=== PATIENT | male | born 1980 | race Two or more races ===

== ENCOUNTER 2018-02-09 12:11 | Inpatient (IN) | payer OTHER ==
--- NOTE | 2018-02-09 12:43 | ED ---
Shortness of Breath - HPI Summary HPI Summary: Patient presents with progressively worsening shortness of breath since Monday. Associated symptoms on Monday included sore throat and cough along with diarrhea. His sore throat seems to be better but still bothers him when he has excessive cough. He also admits to blood-tinged sputum the past couple of days. He's also had nasal congestion but denies headache, neck stiffness, ear pain, chest pain. He's had some abdominal discomfort since the diarrhea however no acute pain today. He also admits to some right lower lung back pain a couple days ago. Does not have this pain today. He also denies pain between his shoulder blades, chest pain or tearing sensation. [place] like his heart was pounding earlier today when he had shortness of breath however this has resolved since he's been able to lie in the bed with oxygen in place. Feels her shortness of breath is improved since oxygen. He also tried his brother's albuterol inhaler prior to arrival things dismay of helped a little. He has not had influenza vaccine and no strong history of strep throat. Also denies history of asthma, COPD, pneumonia, pulmonary embolism, cardiac issues other than hypertension which he treats with lisinopril, atenolol and hydrochlorothiazide. When asked about lower extremity swelling, he reports it may have gotten better since he's been resting the past couple days in bed. H.o smoking - quit years ago - would have an occasional smoke but hasn't in 6 months. Rarey drinks ETOH and denies recent/remote h/o illicit drug use. - History of Current Complaint Chief Complaint: EDShortnessOfBreath Time Seen by Provider: 02/09/18 12:14 Hx Obtained From: Patient, Family/Facilities Engineering Manager - mom, brother - Allergy/Home Medications Allergies/Adverse Reactions: Allergies Allergy/AdvReac Type Severity Reaction Status Date / Time No Known Allergies Allergy Verified 06/17/14 11:40 Home Medications: Home Medications Atenolol TAB* [Tenormin TAB* 50 MG] 100 mg PO DAILY 02/09/18 [History Confirmed 02/09/18] Cyclobenzaprine TAB* [Flexeril 10 MG TAB*] 5 - 10 mg PO TID PRN 02/09/18 [ History Confirmed 02/09/18] Fluoxetine (Nf) Cap [Fluoxetine HCl] 40 mg PO DAILY 02/09/18 [History Confirmed 02/09/18] Ibuprofen TAB* [Motrin TAB* 600 MG] 600 mg PO Q8H PRN 02/09/18 [History Confirmed 02/09/18] Lisinopril/HCTZ (NF) [Zestoretic (NF)] 1 tab PO DAILY 02/09/18 [ History Confirmed 02/09/18] oxyCODONE TAB* [Roxycodone TAB 5 mg*] 5 mg PO Q6H PRN 02/09/18 [History Confirmed 02/09/18] PMH/Surg Hx/FS Hx/Imm Hx Previously Healthy: Yes Endocrine/Hematology History: Denies: Hx Anticoagulant Therapy, Hx Blood Disorders, Hx Diabetes, Hx Unexplained Bleeding, Hx Coagulopothy Cardiovascular History: Reports: Hx Hypertension - ON 3 MEDS Denies: Hx Aneurysm, Hx Cardiac Arrest, Hx Congestive Heart Failure, Hx Deep Vein Thrombosis, Hx Hypercholesterolemia, Hx Myocardial Infarction, Hx Pacemaker /ICD, Hx Syncope, Hx Valvular Heart Disease Respiratory History: Reports: Hx Sleep Apnea Denies: Hx Asthma, Hx Chronic Obstructive Pulmonary Disease (COPD) History: Denies: Hx Kidney Infection, Hx Kidney Stones, Hx Renal Disease Musculoskeletal History: Reports: Hx Back Problems - chronic - on narcotic pain med Sensory History: Denies: Hx Hearing Aid Psychiatric History: Reports: Hx Depression Denies: Hx Panic Disorder - Surgical History Surgery Procedure, Year, and Place: lumbar surgery 2004; RT ANKLE (SCREW IN PLACE); TONSILECTOMY Infectious Disease History: No Infectious Disease History: Denies: Traveled Outside the [place] in Last 30 Days - Family History Known Family History: Positive: Diabetes, Other - asthma - brother - Social History Occupation: Unemployed - applying for disability Lives: With Family - mom, brother Alcohol Use: Rare Hx Substance Use: No - pt denies Substance Use Type: Reports: None Substance Use Comment - Amount & Last Used: takes oxycodone for chronic LBP - no reported issues Hx Tobacco Use: Yes - last smoked 6 months ago Smoking Status (MU): Former Smoker Type: Cigarettes Amount Used/How Often: 1/2 pdd Have You Smoked in the Last Year: Yes Review of Systems Constitutional: Negative Eyes: Negative Positive: Sore Throat Cardiovascular: Other - rapid HR Negative: Chest Pain Positive: Shortness Of Breath, Cough Positive: Diarrhea Positive: no symptoms reported Musculoskeletal: Other - Rt back pain Skin: Negative Psychological: Normal All Other Systems Reviewed And Are Negative: Yes Physical Exam Triage Information Reviewed: Yes Vital Signs On Initial Exam: Initial Vitals Temp Pulse Resp BP Pulse Ox 97.2 F 90 24 124/70 92 02/09/18 12:14 02/09/18 12:14 02/09/18 12:14 02/09/18 12:14 02/09/18 12:14 Vital Signs Reviewed: Yes Appearance: Positive: No Pain Distress - appears mildly faitgued - sweaty forehead and clammy skin, Obese - morbid obesity Skin: Positive: Warm, Skin Color Reflects Adequate Perfusion Head/Face: Positive: Normal Head/Face Inspection Eyes: Positive: Normal, EOMI, MARK, Conjunctiva Clear. Negative: Conjunctiva Inflammed, Discharge ENT: Positive: Hearing grossly normal, Pharynx normal, Nasal congestion - mild, TMs normal, Uvula midline. Negative: Nasal drainage, Tonsillar swelling, Tonsillar exudate, Trismus, Muffled voice, Sinus tenderness Neck: Positive: Supple, Nontender - difficult to assess LN's d/t body habitus Respiratory/Lung Sounds: Positive: Breath Sounds Present - distant. Negative: Rales, Rhonchi, Stridor, Tracheal Deviation, Wheezes, Unable to speak in full sentences, Fatigue Cardiovascular: Positive: Leg Edema Left, Leg Edema Right - edema vs. body habitus - NTTP, S1, S2 - distant heart sounds d/t body habitus Abdomen Description: Positive: Nontender, Soft Musculoskeletal: Positive: Normal, Strength/ROM Intact Neurological: Positive: Normal, Sensory/Motor Intact, Alert, Oriented to Person Place, Time, CN Intact II-III Psychiatric: Positive: Normal Diagnostics - Vital Signs Vital Signs Temp Pulse Resp BP Pulse Ox 02/09/18 12:14 97.2 F 90 24 124/70 92 - Laboratory Result Diagrams: 02/12/18 06:00 02/12/18 06:00 Lab Statement: Any lab studies that have been ordered have been reviewed, and results considered in the medical decision making process. Re-Evaluation - Re-Evaluation First Eval Change: Improved - SOB improved w rest and O2 via NC Course/Dx - Course Course Of Treatment: ECG shows inverted T waves in V1, V2, V3 - discussed w/ Dr. Owens - will await cardiac therapy until additional tests return as he is clinically suspicious for PNA or PE. Added serial troponins. lactic acid 2.2 and renal labs are worse than normal - 2L IVF ordered - will await anbx pending imaging as he does not meet SIRS criteria at this time. CTA reveals B/L PE's, Lt > Rt. D/t extent of PE's and morbid obesity w/ sx here today (although vitals stable), called Dr. Davila to consult ICU admission vs. floor - he agrees to at least 24 obs in ICU and will initiate heparin. There is also a possible infiltrate on CT - IV anbx ordered. Pt transitioned in stable condition. Critical care time: 45mins - Diagnoses Provider Diagnoses: Bilateral pulmonary embolism, Pulmonary infiltrate Discharge - Sign-Out/Discharge Documenting (check all that apply): Patient Departure - Discharge Plan Condition: Stable Disposition: ADMITTED TO [facility] - Billing Disposition and Condition Condition: STABLE Disposition: Admitted to [facility]
[2018-02-09 12:57] LABS: ABS Basophils 0.2 10^3/ul (0-0.2); ABS Eosinophils 0.2 10^3/ul (0-0.6); ABS Lymphocytes 3.7 10^3/ul (1.0-4.8); ABS Monocytes 0.8 10^3/ul (0-0.8); ABS Neutrophils 8.3 10^3/ul (1.5-7.7); ABS Nucleated RBC 0 10^3/ul; Eosinophil % 1.3 % (0-6); Hematocrit 43 % (42-52); Hemoglobin 14.1 g/dl (14.0-18.0); Lymphocyte % 28.3 % (25-47); Mean Corpuscular HGB Conc 33 g/dl (31-36); Mean Corpuscular Hemoglobin 29 pg (27-31); Mean Corpuscular Volume 87 fL (80-94); Mean Platelet Volume 9.7 fL (7.4-10.4); Nucleated Red Blood Cells % 0.1; Platelet Count 296 10^3/ul (150-450); Red Blood Count 4.89 10^6/ul (4.00-5.40); Red Cell Distribution Width 15 % (10.5-15); White Blood Count 13.1 10^3/ul (3.5-10.8)
[2018-02-09 13:07] LABS: INR 1.07 (0.77-1.02)
[2018-02-09 13:16] LABS: EGFR Non-African American 47.3 (>60)
[2018-02-09] MEDS ORDERED: Iodixanol* (CONTRAST) 320 MG/ML 100 ML SDV IV ONE (13:20)
[2018-02-09] MEDS ORDERED: NS 0.9% 1000 ML* 2,000 ML IV SCH (13:30)
[2018-02-09] MEDS ORDERED: NS 0.9% 1000 ML* 2,000 ML IV ONE (14:00)
[2018-02-09] MEDS ORDERED: Azithromycin IV(*) 500 MG in NS 0.9% 250 ML* 250 ML IVPB ONE (15:05)
[2018-02-09] MEDS ORDERED: cefTRIAXone(*) 1 GM in NS 0.9% 50 ML* 50 ML IVPB ONE (15:05)
[2018-02-09] MEDS: Heparin VIAL(*) 5000 UNITS/ML VIAL (FIVE THOUSAND) IV SCH ×2 (16:24→23:25)
[2018-02-09] MEDS: Heparin DRIP 25,000 UNITS(*) 25,000 UNITS/500 ML BAG IV SCH (16:26)
[2018-02-09] MEDS ORDERED: Albuterol 2.5 MG/3 ML NEB.SOL* (0.083%) INH PRN (16:31)
--- NOTE | 2018-02-09 16:31 | HP ---
H&P (Free Text) History and Physical: History and Physical -- Critical Care Limitations in history/physical: none HPI: 37y M w/pmhx of obesity, HTN, Depression, Chronic back pain, sleep apnea; comes to ER for complaints of SOB since Monday. States last (8days back ) developed some cough, sore throat. No rhinorrhea/headache/fever/chills/sick contacts. Also had diarrhea for a few days, watery, some intermittent abd pain, no nausea/vom. The URI and diarrhea has improved past few days, some intermittent soreness in throat at times. Some sputum production at times and small streaks of blood in them only. No Chest pain. SOB started Monday, on exertion, improved with rest. Associated with dizziness but no syncope on exertion. No Lower ext swelling now, but intermittent in past. In ER, had CT chest which demonstrated large pulmonary emboli in left main extending into lingular and left lower lobe, as well as right middle lobe segmental arteria of right lower lobe. Mild scattered infiltrate+ EKG NSR with anterior twave inversions He is awake, alert, sats 92-94 on RA, not tachy, BP 120s in ER on arrival, similar vitals now. Started on NC 2-3L, rr teens, no active Resp distress at rest. Last BP 110s. Discussed with ER about starting IV heparin. ROS: negative except for pertinent positives mentioned above. PMHx: obesity, HTN, Depression, Chronic back pain, sleep apnea PSHx: lumbar surgery 2004, Right ankle screw, tonsillectomy Family History: DM, Asthma in brother Social History: Alcohol-social weekly, Smoking-past smoker, last cig months back , Drug use-none Allergies: Allergies Allergy/AdvReac Type Severity Reaction Status Date / Time No Known Allergies Allergy Verified 06/17/14 11:40 Home Medications: Atenolol TAB* [Tenormin TAB* 50 MG] 100 mg PO DAILY 02/09/18 [History Confirmed 02/09/18] Cyclobenzaprine TAB* [Flexeril 10 MG TAB*] 5 - 10 mg PO TID PRN 02/09/18 [ History Confirmed 02/09/18] Fluoxetine (Nf) Cap [Fluoxetine HCl] 40 mg PO DAILY 02/09/18 [History Confirmed 02/09/18] Ibuprofen TAB* [Motrin TAB* 600 MG] 600 mg PO Q8H PRN 02/09/18 [History Confirmed 02/09/18] Lisinopril/HCTZ (NF) [Zestoretic (NF)] 1 tab PO DAILY 02/09/18 [ History Confirmed 02/09/18] oxyCODONE TAB* [Roxycodone TAB 5 mg*] 5 mg PO Q6H PRN 02/09/18 [History Confirmed 02/09/18] Tele: NSR Vitals: Vital Signs Temp 98.1 F 02/09/18 16:14 Pulse 76 02/09/18 16:14 Resp 23 02/09/18 16:14 BP 97/66 02/09/18 16:14 Pulse Ox 97 02/09/18 16:14 Intake & Output 02/08/18 02/09/18 02/09/18 18:59 06:59 18:59 Intake Total 1999 Balance 1999 Weight 235.868 kg Intake: IV Fluids 1999 O2/Vent: NC 3 L; sat 96% Infusions: heplock Current Medications: Cyclobenzaprine HCl (Flexeril Tab*) 5 mg PO TID PRN PRN Reason: SPASMS - MUSCLE Fluoxetine HCl (Prozac Cap*) 40 mg PO DAILY [facility] Heparin Sodium (Porcine) (Heparin Vial(*)) 0 units IV .PER PROTOCOL [facility] Heparin Sodium/Dextrose (Heparin Drip 25,000 Units(*)) 25,000 units in 500 mls @ 0 mls/hr IV PER RATE JESSICA; Protocol Azithromycin 500 mg/ Sodium (Chloride) 250 mls @ 250 mls/hr IVPB Q24H JESSICA Oxycodone HCl (Roxycodone Tab*) 5 mg PO Q8H PRN PRN Reason: PAIN - SEVERE Physical Exam: General: awake, alert, no distress, no diaphoresis; obese Head: normocephalic, atraumatic HEENT: no pallor, no icterus, moist mucous membranes Neck: soft, supple, no jvd, no stridor CVS: normal rate, regular, no murmur Resp: bilateral air entry, no rhales, no wheeze, no rhonchi, no acc muscle use Abdomen: soft, nontender, nondistended, bowel sounds present Ext: pulses+, warm, no edema Skin: intact Neuro: awake, alert, orientedx3, moving all extremities, no gross focal deficit Labs: Laboratory Results - last 24 hr 02/09/18 02/09/18 02/09/18 12:38 12:38 12:38 WBC 13.1 H RBC 4.89 Hgb 14.1 Hct 43 MCV 87 MCH 29 MCHC 33 RDW 15 Plt Count 296 MPV 9.7 Neut % (Auto) 63.2 Lymph % (Auto) 28.3 [place] % (Auto) 5.9 Eos % (Auto) 1.3 Baso % (Auto) 1.3 Absolute Neuts (auto) 8.3 H Absolute Lymphs (auto) 3.7 Absolute Monos (auto) 0.8 Absolute Eos (auto) 0.2 Absolute Basos (auto) 0.2 Absolute Nucleated RBC 0 Nucleated RBC % 0.1 INR (Anticoag Therapy) APTT Sodium 135 Potassium 3.8 Chloride 105 Carbon Dioxide 21 L Anion Gap 9 BUN 53 H Creatinine 1.63 H Est GFR ( Amer) 57.3 Est GFR (Non-Af Amer) 47.3 BUN/Creatinine Ratio 32.5 H Glucose 127 H Lactic Acid 2.2 H* Calcium 9.1 Magnesium 2.1 Total Bilirubin 0.30 AST 38 ALT 65 H Alkaline Phosphatase 70 Troponin I 0.01 C-Reactive Protein 31.58 H B-Natriuretic Peptide Total Protein 7.0 Albumin 3.8 Globulin 3.2 Albumin/Globulin Ratio 1.2 TSH 3.73 Influenza A (Rapid) Influenza B (Rapid) Group A Strep Rapid 02/09/18 02/09/18 02/09/18 12:38 12:38 13:14 WBC RBC Hgb Hct MCV MCH MCHC RDW Plt Count MPV Neut % (Auto) Lymph % (Auto) [place] % (Auto) Eos % (Auto) Baso % (Auto) Absolute Neuts (auto) Absolute Lymphs (auto) Absolute Monos (auto) Absolute Eos (auto) Absolute Basos (auto) Absolute Nucleated RBC Nucleated RBC % INR (Anticoag Therapy) 1.07 H APTT 27.5 Sodium Potassium Chloride Carbon Dioxide Anion Gap BUN Creatinine Est GFR ( Amer) Est GFR (Non-Af Amer) BUN/Creatinine Ratio Glucose Lactic Acid Calcium Magnesium Total Bilirubin AST ALT Alkaline Phosphatase Troponin I C-Reactive Protein B-Natriuretic Peptide 796 H Total Protein Albumin Globulin Albumin/Globulin Ratio TSH Influenza A (Rapid) Influenza B (Rapid) Group A Strep Rapid Negative 02/09/18 13:15 WBC RBC Hgb Hct MCV MCH MCHC RDW Plt Count MPV Neut % (Auto) Lymph % (Auto) [place] % (Auto) Eos % (Auto) Baso % (Auto) Absolute Neuts (auto) Absolute Lymphs (auto) Absolute Monos (auto) Absolute Eos (auto) Absolute Basos (auto) Absolute Nucleated RBC Nucleated RBC % INR (Anticoag Therapy) APTT Sodium Potassium Chloride Carbon Dioxide Anion Gap BUN Creatinine Est GFR ( Amer) Est GFR (Non-Af Amer) BUN/Creatinine Ratio Glucose Lactic Acid Calcium Magnesium Total Bilirubin AST ALT Alkaline Phosphatase Troponin I C-Reactive Protein B-Natriuretic Peptide Total Protein Albumin Globulin Albumin/Globulin Ratio TSH Influenza A (Rapid) Negative Influenza B (Rapid) Negative Group A Strep Rapid Imaging: CTA chest 02/09 - large pulmonary emboli in left main extending into lingular and left lower lobe, as well as right middle lobe segmental arteria of right lower lobe. Mild scattered infiltrate+ (report reviewed) Assessment: 37y M w/pmhx of obesity, HTN, Depression, Chronic back pain, sleep apnea; comes to ER for complaints of SOB since Monday. States last ( 8days back) developed some cough, sore throat. Had intermittent diarrhea for days also. SOB on exertion for 6 days, mild improvement, no chest pain, no LE swelling. Found to have bilateral pulm emboli with scattered infiltrates. No hypotension or tachycardia on arrival, low 90s O2 sats. -Bilateral Submassive Pulmonary Embolism -Acute RV dysfunction, RV strain -Atypical/interstitial pneumonia -Sepsis -RODRÍGUEZ likely from pre-renal azotemia/volume depletion HTN Obesity Plan: Neuro- awake/alert. delirium prec. asp prec. CVS- BP stable, no hypotension. HR in 80s. on BB at home, noted. LA elevated wtih WBC, some infiltrates, but had diarrhea, likely some component of volume depletion. IVF 2L given. start 50cc/hr. PO intake liquid diet. hold BB/ antihypertensives for now. LE venous duplex. IV heparin bolus/infusion for PE tx. -prelim echo at bedside; evidence of RV dilatatation, septal flattening+ -BP 110, HR 80s, on 3 L, no tachypnea, sats 96%. bnp elevated, trop neg x1. ekg with anteroseptal twave inversions. -currently appears to be submassive, based on PESI score i would rate him a class 1, and OUMAR score is low risk with RV dysfunction only. Based on these scores, hemodyn of patient and resp status, IV heparin may be appropriate at this time. tPA may be consider if any further changes in hemodyn or resp status as rescue therapy with 1/2 dose unless full dose is required. Maintain IV heparin bolus/infusion tx. Resp- tachypnea on exertion. on NC 3 L. no active hypoxia requiring NIV or low sats evident. CT findings noted. TTE as above. IV heparin tx. Start IV abx for pneumonia, possible viral etiology earlier. Bronchodilators PRN. see above ID- wbc 13, afebrile. sent blood cultures. check urine leg/strept, myco for atypical organisms. start azitromycin (day#1) and ceftriaxone (day#1) for CAP coverage. Influenza neg. sputum culture if any. GI- diarrhea resolved as per patient. liquid diet full for now. h2b po. nutrition consult. Renal- RODRÍGUEZ, elevated BUN, nongap acidosis. Diarrhea+, poor po intake, +some degree of upper resp infection/sepsis. LIkely pre-renal origin, volume depletion. IVF 2L NS given. IVF NS 50cc/hr. follow urine output. check mg level. K okay. Heme- hg stable. plt okay. PE, start IV heparin therap dosing. follow protocol. if stable, bridge to warfarin or NOAC, depending on renal function later. check LE duplex. unclear ppt'ing factor, illness? pt states he is mobile though. may need hypercoag workup, will have heme see patient during admission at some point. Endo- send hba1c/tsh/lipid profol. fingerstick as needed Musculsk- pressure ulcer prophylaxis. Bedrest. Wounds- none Nutrition- liquid diet for now DVT prophylaxis: no SCDs till duplex done; IV heparin GI prophylaxis: h2b Central Line: no Arterial Line: no Matt Cathetor: no Disposition: admit to ICU; expected LOS>2 midnights Code Status: full code Total Critical Care time is 90 minutes, excluding procedures/teaching Oscar Davila MD Real Estate Director (Electronically Signed)
[2018-02-09] MEDS ORDERED: Perflutren Lipid Microsphere* 3 ML VIAL ONE (16:37)
[2018-02-09 17:47] LABS: Urine Appearance Clear; Urine Blood Negative (Negative); Urine Color Yellow; Urine Ketones Negative (Negative); Urine Protein Negative (Negative); Urine Urobilinogen Negative (Negative)
--- NOTE | 2018-02-09 18:16 | ECHO ---
Patient: YULY HERNADEZ [facility] Rec#: [id number] : 1980 Date: 02/09/2018 Age: 37y Height: 168 cm / 66.1 in Weight: 236 kg / 520.1 lbs Sex: M BSA: 3.01 Room#: ICU 1 Admit Date#: 02/09/2018 Type: Inpatient Referring: Oscar Davila Reading: Delio Sy MD Professor Of Criminal Justice: Mayte Can RN RDCS CC: Yen Stanford NP Transthoracic Echocardiogram Indication: Pulmonary embolism BP: 102/47 HR: 79 Rhythm: NSR Findings History: HTN, morbid obesity, sleep apnea, former smoker, leg edema Technical Comments: The study is technically limited due to poor acoustic windows. The study is technically limited due to patient body habitus. Left Ventricle: The left ventricular chamber size is decreased. Global left ventricular wall motion and contractility are within normal limits. There is normal left ventricular systolic function. The estimated ejection fraction is 60-65%. There is septal flattening of the interventricular septum consistent with right ventricular volume or pressure overload. The assessment of diastolic function is non-diagnostic. Left Atrium: The left atrium is not well visualized. The left atrial chamber size is normal. Right Ventricle: The right ventricle is not well visualized. The right ventricle is moderate to severely dilated. The right ventricular systolic function is moderate to severely reduced. Right Atrium: The right atrium is not well visualized. Aortic Valve: The aortic valve structure is not well visualized. There is no evidence of aortic regurgitation. There is no evidence of aortic stenosis. Mitral Valve: The mitral valve leaflets appear normal. There is no evidence of mitral regurgitation. Tricuspid Valve: The tricuspid valve structure is not well visualized. There is trace tricuspid regurgitation. There is evidence of moderate to severe pulmonary hypertension. Pulmonic Valve: The pulmonic valve structure is not well visualized. There is no evidence of pulmonic regurgitation. There is no pulmonic stenosis. Pericardium: There is no significant pericardial effusion. Aorta: The aorta is not well visualized. There is no dilatation of the aortic arch. Pulmonary Artery: The main pulmonary artery is not well visualized. Venous: The venous system is not well visualized. The inferior vena cava is not visualized. Contrast: Definity was used to optimize study. A total of 5 ml of diluted Definity was given IV. Conclusions There is normal left ventricular systolic function. The estimated ejection fraction is 60-65%. Global left ventricular wall motion and contractility are within normal limits. The left ventricular chamber size is decreased. The right ventricle is moderate to severely dilated. The right ventricular systolic function is moderate to severely reduced. There is septal flattening of the interventricular septum consistent with right ventricular volume or pressure overload. Functionally benign heart valves. There is evidence of moderate to severe pulmonary hypertension. There is no prior echocardiogram available to compare with at this time. Results discussed with the attending physician, Dr. Davila. Measurements Name Value Normal Range RVIDd (AP) 2D 5.5 cm (0.9 - 2.6) IVSd (2D) 1 cm (0.6 - 1) LVPWd (2D) 1 cm (0.6 - 1) LVIDd (2D) 3.5 cm (3.6 - 5.4) Aortic Annulus 2.1 cm (1.4 - 2.6) Aortic arch 2.6 cm (1.8 - 3.4) LA dimension (AP) 2D 3.1 cm (2.3 - 3.8) Name Value Normal Range MV E-wave Vmax 0.82 m/sec - MV deceleration time 236 msec - MV A-wave Vmax 0.66 m/sec - MV E:A ratio 1.2 ratio - LV septal e' Vmax 0.07 m/sec - LV lateral e' Vmax 0.08 m/sec - LV E:e' septal ratio 11.7 ratio - LV E:e' lateral ratio 10.3 ratio - Name Value Normal Range AV Vmax 0.97 m/sec - AV VTI 15.1 cm - AV peak gradient 4 mmHg - AV mean gradient 2 mmHg - LVOT Vmax 0.66 m/sec - LVOT VTI 12.5 cm - LVOT peak gradient 2 mmHg - LVOT mean gradient 1 mmHg - ASHKAN Vmax 1.2 m/sec - Name Value Normal Range TR Vmax 3.5 m/sec - TR peak gradient 49 mmHg - RAP 8 mmHg - RVSP 57 mmHg - Name Value Normal Range PV Vmax 0.8 m/sec -
[2018-02-09] MEDS ORDERED: Lidocaine 2% PF * 5 ML VIAL ONE (18:27)
--- NOTE | 2018-02-09 19:01 | PN ---
Progress Note - Progress Note Date of Service: 02/09/18 Note: Arterial Line Procedure Note Indication: invasive hemodynamic monitoring Diagnosis: pulmonary embolism Performed by: Oscar Davila MD Consent: Informed ; placed in bedside chart Risk/Benefits of procedure explained. [place] Protocol: Time-out was performed and the correct patient and site were verified - Prior labs/history was reviewed prior to procedure - Full sterile precautions with chlorhexidine/full drapes/gowns/gloves utilized - Left radial artery visualized with US - Vessel accessed with return of pulsatile blood. One attempt was made to access vessel. A cathetor was threaded over wire into vessel. Good arterial waveform was observed on monitor. - Arterial Catheter was sutured to site; dressing applied to site. EBL <5 cc No immediate complications noted, patient tolerated procedure well. Oscar Davila MD Conveyor Installer (Electronically Signed)
--- NOTE | 2018-02-09 19:03 | PN ---
Progress Note - Progress Note Date of Service: 02/09/18 Note: Critical Care Unclear blood pressures; different pressures on different arms consent for arterial line; left radial arterial line placed; BP 110s/60s, HR 80s sinus awake/alert, on 3-4L, Sats 96%, no resp distress/tachypnea if he moves, he does get sob on exertion making urine LA normalized, trop repeat 0.01 still TTE official read as moderate-severe RV dysfunction consistent with submassive PE diagnosis. remains hemodyn stable, stable oxygen requirements, symptoms stable, subjectively feels better, objectively looks similar without any lethargic/ distress. maintain IV heparin infusion, follow protocol tpa will be considered if any worsenign status or hemodyn change. Oscar Davila MD Film Touch Up Inspector (electronically signed)
[2018-02-09] MEDS: NS 0.9% 1000 ML* 1,000 ML IV SCH (22:40)
[2018-02-10] MEDS: Heparin DRIP 25,000 UNITS(*) 25,000 UNITS/500 ML BAG IV SCH ×2 (03:34→17:10)
[2018-02-10] MEDS: oxyCODONE TAB* 5 MG TAB PO PRN ×2 (05:40→16:12)
[2018-02-10 05:52] LABS: Hematocrit 41 % (42-52); Hemoglobin 13.7 g/dl (14.0-18.0); Mean Corpuscular HGB Conc 34 g/dl (31-36); Mean Corpuscular Hemoglobin 29 pg (27-31); Mean Corpuscular Volume 86 fL (80-94); Mean Platelet Volume 9.8 fL (7.4-10.4); Platelet Count 244 10^3/ul (150-450); Red Blood Count 4.75 10^6/ul (4.00-5.40); Red Cell Distribution Width 15 % (10.5-15); White Blood Count 9.9 10^3/ul (3.5-10.8)
[2018-02-10 06:13] LABS: EGFR Non-African American 70.8 (>60)
[2018-02-10] MEDS: Heparin VIAL(*) 5000 UNITS/ML VIAL (FIVE THOUSAND) IV SCH ×2 (06:17→18:37)
[2018-02-10] MEDS: Famotidine TAB* 20 MG PO SCH (08:58)
[2018-02-10] MEDS: FLUoxetine CAP* 20 MG PO SCH (08:58)
--- NOTE | 2018-02-10 12:04 | PN ---
Progress Note - Progress Note Date of Service: 02/10/18 - Progress note Note: Pt seen and examined at bedside. O/n events noted, labs, meds, vitals reviewed Pt denies chest pain, SOB, dizziness, urinary complaints, head aches, LE pain BP has remained stable with MAP in 90`s overnight. Didnot require tPA Active Medications Generic Name Dose Route Start Last Admin Trade Name Freq PRN Reason Stop Dose Admin Albuterol 2.5 mg 02/09/18 16:31 Ventolin 2.5 Mg/3 Ml Neb.Angelica* INH Q4H PRN SOB/WHEEZING Cyclobenzaprine HCl 5 mg 02/09/18 15:30 Flexeril Tab* PO TID PRN SPASMS - MUSCLE Famotidine 20 mg 02/10/18 09:00 02/10/18 08:58 Pepcid Tab* PO 20 mg DAILY JESSICA Administration Fluoxetine HCl 40 mg 02/10/18 09:00 02/10/18 08:58 Prozac Cap* PO 40 mg DAILY JESSICA Administration Heparin Sodium (Porcine) 0 units 02/09/18 16:00 02/10/18 06:17 Heparin Vial(*) IV 4,000 units .PER PROTOCOL JESSICA Administration Heparin Sodium (Porcine) 1 - 3 ml 02/09/18 18:00 02/10/18 06:03 Heparin Flush Picc/Ml/Cvc(*) FLUSH Not Given 0600,1800 JESSICA Protocol Heparin Sodium/Dextrose 25,000 units in 500 mls @ 0 mls/hr 02/09/18 15:30 01/18 03:34 Heparin Drip 25,000 Units(*) IV 45 mls/hr PER RATE JESSICA Administration Protocol Per Protocol Azithromycin 500 mg/ Sodium 250 mls @ 250 mls/hr 02/10/18 17:00 Chloride IVPB Q24H JESSICA Sodium Chloride 1,000 mls @ 50 mls/hr 02/09/18 19:15 02/09/18 22:40 Ns 0.9% 1000 Ml* IV 50 mls/hr .PER RATE JESSICA Administration Oxycodone HCl 5 mg 02/09/18 15:30 02/10/18 05:40 Roxycodone Tab* PO 5 mg Q8H PRN Administration PAIN - SEVERE Vital Signs Temp Pulse Resp BP Pulse Ox 97.1 F 93 21 92/63 93 02/10/18 07:39 02/10/18 10:00 02/10/18 10:00 02/09/18 19:12 02/10/18 10:00 O/E: Pt in NAD, morbidly obese HEENT: PERRLA, NO JVD Lungs: Distant breath sounds, scattered wheeze+ CVS: S1, S2+, regular Abd: Obese, BS+ Ext: pulses+, normal ROM Neuro: Alert, awake, no focal defecits Skin: No rash Laboratory Results - last 24 hr 02/09/18 02/09/18 02/09/18 12:38 12:38 12:38 WBC 13.1 H RBC 4.89 Hgb 14.1 Hct 43 MCV 87 MCH 29 MCHC 33 RDW 15 Plt Count 296 MPV 9.7 Neut % (Auto) 63.2 Lymph % (Auto) 28.3 [place] % (Auto) 5.9 Eos % (Auto) 1.3 Baso % (Auto) 1.3 Absolute Neuts (auto) 8.3 H Absolute Lymphs (auto) 3.7 Absolute Monos (auto) 0.8 Absolute Eos (auto) 0.2 Absolute Basos (auto) 0.2 Absolute Nucleated RBC 0 Nucleated RBC % 0.1 INR (Anticoag Therapy) APTT Sodium 135 Potassium 3.8 Chloride 105 Carbon Dioxide 21 L Anion Gap 9 BUN 53 H Creatinine 1.63 H Est GFR ( Amer) 57.3 Est GFR (Non-Af Amer) 47.3 BUN/Creatinine Ratio 32.5 H Glucose 127 H Lactic Acid 2.2 H* Calcium 9.1 Magnesium 2.1 Total Bilirubin 0.30 AST 38 ALT 65 H Alkaline Phosphatase 70 Troponin I 0.01 C-Reactive Protein 31.58 H B-Natriuretic Peptide Total Protein 7.0 Albumin 3.8 Globulin 3.2 Albumin/Globulin Ratio 1.2 Triglycerides Cholesterol LDL Cholesterol HDL Cholesterol TSH 3.73 Urine Color Urine Appearance Urine pH Ur Specific [place] Urine Protein Urine Ketones Urine Blood Urine Nitrate Urine Bilirubin Urine Urobilinogen Ur Leukocyte Esterase Urine Glucose Influenza A (Rapid) Influenza B (Rapid) Group A Strep Rapid 02/09/18 02/09/18 02/09/18 12:38 12:38 13:14 WBC RBC Hgb Hct MCV MCH MCHC RDW Plt Count MPV Neut % (Auto) Lymph % (Auto) [place] % (Auto) Eos % (Auto) Baso % (Auto) Absolute Neuts (auto) Absolute Lymphs (auto) Absolute Monos (auto) Absolute Eos (auto) Absolute Basos (auto) Absolute Nucleated RBC Nucleated RBC % INR (Anticoag Therapy) 1.07 H APTT 27.5 Sodium Potassium Chloride Carbon Dioxide Anion Gap BUN Creatinine Est GFR ( Amer) Est GFR (Non-Af Amer) BUN/Creatinine Ratio Glucose Lactic Acid Calcium Magnesium Total Bilirubin AST ALT Alkaline Phosphatase Troponin I C-Reactive Protein B-Natriuretic Peptide 796 H Total Protein Albumin Globulin Albumin/Globulin Ratio Triglycerides Cholesterol LDL Cholesterol HDL Cholesterol TSH Urine Color Urine Appearance Urine pH Ur Specific [place] Urine Protein Urine Ketones Urine Blood Urine Nitrate Urine Bilirubin Urine Urobilinogen Ur Leukocyte Esterase Urine Glucose Influenza A (Rapid) Influenza B (Rapid) Group A Strep Rapid Negative 02/09/18 02/09/18 02/09/18 13:15 17:25 17:25 WBC RBC Hgb Hct MCV MCH MCHC RDW Plt Count MPV Neut % (Auto) Lymph % (Auto) [place] % (Auto) Eos % (Auto) Baso % (Auto) Absolute Neuts (auto) Absolute Lymphs (auto) Absolute Monos (auto) Absolute Eos (auto) Absolute Basos (auto) Absolute Nucleated RBC Nucleated RBC % INR (Anticoag Therapy) APTT Sodium Potassium Chloride Carbon Dioxide Anion Gap BUN Creatinine Est GFR ( Amer) Est GFR (Non-Af Amer) BUN/Creatinine Ratio Glucose Lactic Acid 1.3 Calcium Magnesium Total Bilirubin AST ALT Alkaline Phosphatase Troponin I 0.01 C-Reactive Protein B-Natriuretic Peptide Total Protein Albumin Globulin Albumin/Globulin Ratio Triglycerides Cholesterol LDL Cholesterol HDL Cholesterol TSH Urine Color Urine Appearance Urine pH Ur Specific [place] Urine Protein Urine Ketones Urine Blood Urine Nitrate Urine Bilirubin Urine Urobilinogen Ur Leukocyte Esterase Urine Glucose Influenza A (Rapid) Negative Influenza B (Rapid) Negative Group A Strep Rapid 02/09/18 02/09/18 02/10/18 17:35 22:35 05:35 WBC RBC Hgb Hct MCV MCH MCHC RDW Plt Count MPV Neut % (Auto) Lymph % (Auto) [place] % (Auto) Eos % (Auto) Baso % (Auto) Absolute Neuts (auto) Absolute Lymphs (auto) Absolute Monos (auto) Absolute Eos (auto) Absolute Basos (auto) Absolute Nucleated RBC Nucleated RBC % INR (Anticoag Therapy) APTT 48.3 H Sodium 139 Potassium 4.1 Chloride 107 Carbon Dioxide 25 Anion Gap 7 BUN 34 H Creatinine 1.15 Est GFR ( Amer) 85.7 Est GFR (Non-Af Amer) 70.8 BUN/Creatinine Ratio 29.6 H Glucose 109 H Lactic Acid Calcium 8.9 Magnesium Total Bilirubin AST ALT Alkaline Phosphatase Troponin I 0.01 C-Reactive Protein B-Natriuretic Peptide Total Protein Albumin Globulin Albumin/Globulin Ratio Triglycerides 199 Cholesterol 134 LDL Cholesterol 72 HDL Cholesterol 22.5 TSH 2.14 Urine Color Yellow Urine Appearance Clear Urine pH 5.0 Ur Specific [place] 1.030 Urine Protein Negative Urine Ketones Negative Urine Blood Negative Urine Nitrate Negative Urine Bilirubin Negative Urine Urobilinogen Negative Ur Leukocyte Esterase Negative Urine Glucose Negative Influenza A (Rapid) Influenza B (Rapid) Group A Strep Rapid 02/10/18 02/10/18 05:35 05:35 WBC 9.9 RBC 4.75 Hgb 13.7 L Hct 41 L MCV 86 MCH 29 MCHC 34 RDW 15 Plt Count 244 MPV 9.8 Neut % (Auto) Lymph % (Auto) [place] % (Auto) Eos % (Auto) Baso % (Auto) Absolute Neuts (auto) Absolute Lymphs (auto) Absolute Monos (auto) Absolute Eos (auto) Absolute Basos (auto) Absolute Nucleated RBC Nucleated RBC % INR (Anticoag Therapy) APTT 49.5 H Sodium Potassium Chloride Carbon Dioxide Anion Gap BUN Creatinine Est GFR ( Amer) Est GFR (Non-Af Amer) BUN/Creatinine Ratio Glucose Lactic Acid Calcium Magnesium Total Bilirubin AST ALT Alkaline Phosphatase Troponin I C-Reactive Protein B-Natriuretic Peptide Total Protein Albumin Globulin Albumin/Globulin Ratio Triglycerides Cholesterol LDL Cholesterol HDL Cholesterol TSH Urine Color Urine Appearance Urine pH Ur Specific [place] Urine Protein Urine Ketones Urine Blood Urine Nitrate Urine Bilirubin Urine Urobilinogen Ur Leukocyte Esterase Urine Glucose Influenza A (Rapid) Influenza B (Rapid) Group A Strep Rapid I/R: 37 y o morbidly obese male with h/o HTN, Depression, Chronic back pain, sleep apnea presented to ER with worsening SOB, sputum with streaks of blood after recent URI, CT chest showed large pulmonary emboli in left main extending into lingular and left lower lobe, right middle lobe and right lower lobe segmental arteries Pt had ECHO with evidence of right heart strain Pt has h/o HTN, has taken BP meds on day of admission. His systolics were around 90`s with non-invasive cuff monitoring. Had arterial line placed yesterday, BP have been around 110`s systolic He is asymptomatic He doesnot require tPA at this time Slightly tachycardic, not tachypneic On Heparin IV , PTT in therapeutic range H&H and platelet count are normal Will c/w Heparin given significant clot burden until more stable On Azithromycin given recent URI sx Former smoker, quit recently Has mild wheeze on auscultation, albuterol prn LE duplex pending Tolerating po diet Lt radial A-line for hemodynamic monitoring Needs close monitoring in ICU Plan of care discussed with pt this am D/w bedside JEFF
[2018-02-10] MEDS ORDERED: Azithromycin IV(*) 500 MG in NS 0.9% 250 ML* 250 ML IVPB SCH (17:00)
[2018-02-10] MEDS: NS 0.9% 1000 ML* 1,000 ML IV SCH (22:40)
[2018-02-11] MEDS: oxyCODONE TAB* 5 MG TAB PO PRN ×2 (02:16→13:54)
[2018-02-11] MEDS: Heparin DRIP 25,000 UNITS(*) 25,000 UNITS/500 ML BAG IV SCH ×2 (03:40→13:00)
[2018-02-11 03:46] LABS: Hematocrit 40 % (42-52); Hemoglobin 13.3 g/dl (14.0-18.0); Mean Corpuscular HGB Conc 33 g/dl (31-36); Mean Corpuscular Hemoglobin 28 pg (27-31); Mean Corpuscular Volume 86 fL (80-94); Mean Platelet Volume 9.4 fL (7.4-10.4); Platelet Count 231 10^3/ul (150-450); Red Blood Count 4.68 10^6/ul (4.00-5.40); Red Cell Distribution Width 15 % (10.5-15); White Blood Count 9.1 10^3/ul (3.5-10.8)
[2018-02-11 04:13] LABS: EGFR Non-African American 86.2 (>60)
--- NOTE | 2018-02-11 08:16 | PN ---
Progress Note - Progress Note Date of Service: 02/11/18 - Progress note Note: Pt seen and examined at bedside. Overnight events noted, has required increased FiO2 to 8L, currently on 6L. Hemodynamically stable, BP on arterial line 132/81. PTT was subthereupeutic yesterday evening as drip was held for some time due to miscommunication, therapeutic this am. Active Medications Generic Name Dose Route Start Last Admin Trade Name Freq PRN Reason Stop Dose Admin Albuterol 2.5 mg 02/09/18 16:31 Ventolin 2.5 Mg/3 Ml Neb.Angelica* INH Q4H PRN SOB/WHEEZING Cyclobenzaprine HCl 5 mg 02/09/18 15:30 Flexeril Tab* PO TID PRN SPASMS - MUSCLE Famotidine 20 mg 02/10/18 09:00 02/10/18 08:58 Pepcid Tab* PO 20 mg DAILY JESSICA Administration Fluoxetine HCl 40 mg 02/10/18 09:00 02/10/18 08:58 Prozac Cap* PO 40 mg DAILY JESSICA Administration Heparin Sodium (Porcine) 0 units 02/09/18 16:00 02/10/18 18:37 Heparin Vial(*) IV 8,000 units .PER PROTOCOL JESSICA Administration Heparin Sodium (Porcine) 1 - 3 ml 02/09/18 18:00 02/11/18 06:28 Heparin Flush Picc/Ml/Cvc(*) FLUSH Not Given 0600,1800 JESSICA Protocol Heparin Sodium/Dextrose 25,000 units in 500 mls @ 0 mls/hr 02/09/18 15:30 02/18 03:40 Heparin Drip 25,000 Units(*) IV 53 mls/hr PER RATE JESSICA Administration Protocol Per Protocol Azithromycin 500 mg/ Sodium 250 mls @ 250 mls/hr 02/10/18 17:00 02/10/18 17: 05 Chloride IVPB 250 mls/hr Q24H JESSICA Administration Sodium Chloride 1,000 mls @ 50 mls/hr 02/09/18 19:15 02/10/18 22:40 Ns 0.9% 1000 Ml* IV 50 mls/hr .PER RATE JESSICA Administration Oxycodone HCl 5 mg 02/09/18 15:30 02/11/18 02:16 Roxycodone Tab* PO 5 mg Q8H PRN Administration PAIN - SEVERE Vital Signs Temp Pulse Resp BP Pulse Ox 96.5 F 92 21 161/95 95 02/11/18 07:42 02/11/18 06:01 02/11/18 06:01 02/11/18 06:00 02/11/18 06:01 O/E: Pt in NAD, alert, awake HEENT: PERRLA, No JVD Lungs: Good a/e b/l, no wheeze CVS: S1, S2+ Abd: Obese, BS+ Skin: NO rash, bruises Neuro: No focal deficits Laboratory Results - last 24 hr 02/10/18 02/10/18 02/10/18 05:35 13:00 17:15 WBC RBC Hgb Hct MCV MCH MCHC RDW Plt Count MPV APTT 54.2 H 30.5 Sodium Potassium Chloride Carbon Dioxide Anion Gap BUN Creatinine Est GFR ( Amer) Est GFR (Non-Af Amer) BUN/Creatinine Ratio Glucose Hemoglobin A1c 6.1 H Calcium 02/10/18 02/11/18 02/11/18 20:16 03:34 03:34 WBC RBC Hgb Hct MCV MCH MCHC RDW Plt Count MPV APTT 95.6 H 50.4 H Sodium 139 Potassium 4.0 Chloride 108 Carbon Dioxide 23 Anion Gap 8 BUN 22 Creatinine 0.97 Est GFR ( Amer) 104.3 Est GFR (Non-Af Amer) 86.2 BUN/Creatinine Ratio 22.7 H Glucose 125 H Hemoglobin A1c Calcium 8.9 02/11/18 03:34 WBC 9.1 RBC 4.68 Hgb 13.3 L Hct 40 L MCV 86 MCH 28 MCHC 33 RDW 15 Plt Count 231 MPV 9.4 APTT Sodium Potassium Chloride Carbon Dioxide Anion Gap BUN Creatinine Est GFR ( Amer) Est GFR (Non-Af Amer) BUN/Creatinine Ratio Glucose Hemoglobin A1c Calcium LE duplex: Occlusive DVT b/l in posterior tibial veins and non-occlusive thrombus in left popliteal veins ECHO:Normal LV function. Dilated RV with mod to severely decreased RV function CTA: Large clot burden in Lt main to lingular and LLL pulm arteries, alos seen in RML and RLL segmental branches I/R: 37 y o morbidly obese male with HTN, depression, chronic back pain, possible sleep apnea. Pt a/w worsening SOB after recent URI sx, found to have submassive PE with RV strain Pt remained hemodynamically stable, didnot require tPA Non-invasive BP monitoring shows lower readings due to smaller cuff A-line with BP in 130`s systolic Antihypertensives were on hold as he was hypotensive on admission due to submassive PE Can restart antihypertensives LE duplex shows below knee DVT He is on heparin drip, at thereupeutic level Hematology consult requested for recommendations for anticoagulation Will titrate FiO2 as tolerated Will obtain ABG to evaluate for hypercapnia to qualify for Trilogy at night Will check PTT this am Tolerating Po Completed 3 day course of abx, no signs of sepsis, will d/c Will d/c A-line Had lengthy discussion with pts brother and [id number] yesterday. They had many questions that were answered to their satisfaction Discussed plan today with pt, his brother at bedside and pts father over phone and bedside RN Can be transferred to regular medical floor
[2018-02-11] MEDS: FLUoxetine CAP* 20 MG PO SCH (08:20)
[2018-02-11] MEDS: Famotidine TAB* 20 MG PO SCH (08:20)
[2018-02-11] MEDS: Heparin VIAL(*) 5000 UNITS/ML VIAL (FIVE THOUSAND) IV SCH (10:57)
[2018-02-11] MEDS: Nystatin TOP POWDER* 15 GM BTL TOPICAL SCH ×2 (12:25→22:01)
[2018-02-11] MEDS ORDERED: Polyethylene Glycol 3350* 17 GM PACKET PO PRN (21:05)
[2018-02-11] MEDS ORDERED: Ondansetron INJ* 2 MG/ML VIAL IV PRN (21:05)
[2018-02-12] MEDS: Heparin VIAL(*) 5000 UNITS/ML VIAL (FIVE THOUSAND) IV SCH (00:09)
[2018-02-12 06:37] LABS: Hematocrit 40 % (42-52); Hemoglobin 13.4 g/dl (14.0-18.0); Mean Corpuscular HGB Conc 33 g/dl (31-36); Mean Corpuscular Hemoglobin 29 pg (27-31); Mean Corpuscular Volume 87 fL (80-94); Mean Platelet Volume 9.4 fL (7.4-10.4); Platelet Count 212 10^3/ul (150-450); Red Blood Count 4.68 10^6/ul (4.00-5.40); Red Cell Distribution Width 15 % (10.5-15)
[2018-02-12 06:55] LABS: EGFR Non-African American 79.5 (>60)
[2018-02-12] MEDS: Heparin DRIP 25,000 UNITS(*) 25,000 UNITS/500 ML BAG IV SCH ×2 (07:20→16:34)
[2018-02-12] MEDS: Famotidine TAB* 20 MG PO SCH (07:40)
[2018-02-12] MEDS: oxyCODONE TAB* 5 MG TAB PO PRN ×2 (07:40→16:09)
[2018-02-12] MEDS: FLUoxetine CAP* 20 MG PO SCH (07:40)
[2018-02-12] MEDS: Nystatin TOP POWDER* 15 GM BTL TOPICAL SCH ×3 (07:40→20:09)
--- NOTE | 2018-02-12 13:07 | PN ---
Subjective Date of Service: 02/12/18 Interval History: patient seen in bed. he states he is feeling better. He still require oxygen of course given the large burden of his PE. no events overnight. Will keep him on heparin while Coumadin is getting therapeutic Past Medical History: Unchanged from Admission Objective Active Medications: Albuterol (Ventolin 2.5 Mg/3 Ml Neb.Angelica*) 2.5 mg INH Q4H PRN PRN Reason: SOB/WHEEZING Cyclobenzaprine HCl (Flexeril Tab*) 5 mg PO TID PRN PRN Reason: SPASMS - MUSCLE Famotidine (Pepcid Tab*) 20 mg PO DAILY [facility] Last Admin: 02/12/18 07:40 Dose: 20 mg Fluoxetine HCl (Prozac Cap*) 40 mg PO DAILY [facility] Last Admin: 02/12/18 07:40 Dose: 40 mg Heparin Sodium (Porcine) (Heparin Vial(*)) 0 units IV .PER PROTOCOL [facility] Last Admin: 02/12/18 00:09 Dose: 8,000 units Heparin Sodium (Porcine) (Heparin Flush Picc/Ml/Cvc(*)) 1 - 3 ml FLUSH 0600, 1800 [facility]; Protocol Last Admin: 02/12/18 06:11 Dose: 1 ml Heparin Sodium/Dextrose (Heparin Drip 25,000 Units(*)) 25,000 units in 500 mls @ 0 mls/hr IV PER RATE [facility]; Protocol Last Admin: 02/12/18 07:20 Dose: 69 mls/hr Nystatin (Nystatin Top Powder*) 1 applic TOPICAL TID [facility] Last Admin: 02/12/18 07:40 Dose: 1 applic Ondansetron HCl (Zofran Inj*) 4 mg IV Q6H PRN PRN Reason: NAUSEA Oxycodone HCl (Roxycodone Tab*) 5 mg PO Q8H PRN PRN Reason: PAIN - SEVERE Last Admin: 02/12/18 07:40 Dose: 5 mg Pharmacy Profile Note (Coumadin Per Pharmacy*) 1 note FOLLOW UP .PER PHARMACY PROTOC [facility]; Protocol Polyethylene Glycol/Electrolytes (Miralax*) 17 gm PO DAILY PRN PRN Reason: CONSTIPATION Warfarin Sodium (Coumadin Tab(*)) 10 mg PO DAILY@1700 [facility]; Protocol Stop: 02/12/18 17:01 Vital Signs - 8 hr 11/03/2002/12/18 02/12/18 07:25 07:40 08:00 Temperature 97.5 F Pulse Rate 97 Respiratory 20 14 18 Rate Blood Pressure 147/74 (mmHg) O2 Sat by Pulse 96 Oximetry 02/12/18 02/12/18 09:37 11:19 Temperature 98.2 F Pulse Rate 103 Respiratory 18 20 Rate Blood Pressure 138/91 (mmHg) O2 Sat by Pulse 95 Oximetry Oxygen Devices in Use Now: Nasal Cannula Appearance: Morbid obese. no distress. Eyes: - - EOMI Ears/Nose/Mouth/Throat: Clear Oropharnyx Neck: - - short neck, large circumference Respiratory: - - limited and distant given his body habitus Cardiovascular: NL Sounds; No Murmurs; No JVD, RRR Abdominal: - - Obese Extremities: - - edema Neurological: Alert and Oriented x 3 Result Diagrams: 02/12/18 06:00 02/12/18 06:00 Microbiology and Other Data: Microbiology 02/09/18 12:38 Aerobic Blood Culture - Preliminary Blood Venous No Growth Day 3 Anaerobic Blood Culture - Preliminary No Growth Day 3 02/11/18 21:25 Gram Stain - Final Sputum Expectorated 02/09/18 13:08 Aerobic Blood Culture - Preliminary Blood Venous No Growth Day 2 Anaerobic Blood Culture - Preliminary No Growth Day 2 02/09/18 17:35 Legionella Urinary Antigen - Final Urine Negative Legionella Antigen Streptococcus pneumoniae Ag Screen - Final Negative S. pneumo Antigen 02/09/18 12:58 Group A Streptococcus Rapid Screen - Final Throat Specimen received for Rapid Strep A Molecular testing 02/09/18 12:58 Influenza Types A,B Antigen - Final Nasopharyngeal Specimen received for Influenza A/B Molecular testing Assess/Plan/Problems-Billing Assessment: 37 y o morbidly obese male with HTN, depression, chronic back pain, possible sleep apnea. Pt a/w worsening SOB after recent URI sx, found to have submassive PE with RV strain - Patient Problems (1) Pulmonary embolism Current Visit: Yes Status: Acute Code(s): I26.99 - OTHER PULMONARY EMBOLISM WITHOUT ACUTE COR PULMONALE SNOMED Code(s): 65666449 Comment: - Heparin drip - Start coumadin tonight as per pharmacy 10 mg tonight - he may need home Oxygen/ and CPAP if possible (2) DVT of lower extremity, bilateral Current Visit: Yes Status: Acute Code(s): I82.403 - ACUTE EMBOLISM AND THOMBOS UNSP DEEP VEINS OF LOW EXTRM, BI SNOMED Code(s): 199125290 (3) Obesities, morbid Current Visit: Yes Status: Acute Code(s): E66.01 - MORBID (SEVERE) OBESITY DUE TO EXCESS CALORIES SNOMED Code(s): 078119522 Comment: - Heparin drip - Start coumadin tonight as per pharmacy 10 mg tonight (4) Chronic back pain Current Visit: Yes Status: Acute Code(s): M54.9 - DORSALGIA, UNSPECIFIED; G89.29 - OTHER CHRONIC PAIN SNOMED Code(s): 353979668
[2018-02-12] MEDS: Cyclobenzaprine TAB* 10 MG PO PRN (16:10)
[2018-02-12] MEDS ORDERED: Warfarin TAB(*) 10 MG PO ONE (17:00)
[2018-02-12] MEDS: Acetaminophen TAB* 325 MG PO PRN (22:19)
[2018-02-13] MEDS: oxyCODONE TAB* 5 MG TAB PO PRN ×3 (02:21→20:01)
[2018-02-13] MEDS: Cyclobenzaprine TAB* 10 MG PO PRN ×3 (02:22→20:00)
[2018-02-13 06:16] LABS: Hematocrit 40 % (42-52); Hemoglobin 13.2 g/dl (14.0-18.0); Mean Corpuscular HGB Conc 33 g/dl (31-36); Mean Corpuscular Hemoglobin 29 pg (27-31); Mean Corpuscular Volume 87 fL (80-94); Mean Platelet Volume 9.5 fL (7.4-10.4); Platelet Count 199 10^3/ul (150-450); Red Blood Count 4.62 10^6/ul (4.00-5.40); Red Cell Distribution Width 15 % (10.5-15); White Blood Count 8.3 10^3/ul (3.5-10.8)
[2018-02-13 06:22] LABS: INR 1.44 (0.77-1.02)
[2018-02-13 06:26] LABS: EGFR Non-African American 83.2 (>60)
[2018-02-13] MEDS: Famotidine TAB* 20 MG PO SCH (08:50)
[2018-02-13] MEDS: FLUoxetine CAP* 20 MG PO SCH (08:50)
[2018-02-13] MEDS: Nystatin TOP POWDER* 15 GM BTL TOPICAL SCH ×3 (08:51→19:40)
[2018-02-13] MEDS: Acetaminophen TAB* 325 MG PO PRN ×2 (09:49→19:58)
[2018-02-13] MEDS: Heparin DRIP 25,000 UNITS(*) 25,000 UNITS/500 ML BAG IV SCH ×2 (11:14→19:52)
[2018-02-13] MEDS ORDERED: Warfarin TAB(*) 10 MG PO ONE (17:00)
--- NOTE | 2018-02-13 17:41 | PN ---
Subjective Date of Service: 02/13/18 Interval History: Doing better, remains on bed rest. O2 remain at 5 liters. He denies any complains and offers no chest pain or nausea/vomit. taking po well Past Medical History: Unchanged from Admission Objective Active Medications: Acetaminophen (Tylenol Tab*) 650 mg PO Q6H PRN PRN Reason: FEVER/PAIN Last Admin: 02/13/18 09:49 Dose: 650 mg Albuterol (Ventolin 2.5 Mg/3 Ml Neb.Angelica*) 2.5 mg INH Q4H PRN PRN Reason: SOB/WHEEZING Cyclobenzaprine HCl (Flexeril Tab*) 5 mg PO TID PRN PRN Reason: SPASMS - MUSCLE Last Admin: 02/13/18 11:37 Dose: 5 mg Famotidine (Pepcid Tab*) 20 mg PO DAILY [facility] Last Admin: 02/13/18 08:50 Dose: 20 mg Fluoxetine HCl (Prozac Cap*) 40 mg PO DAILY [facility] Last Admin: 02/13/18 08:50 Dose: 40 mg Heparin Sodium (Porcine) (Heparin Vial(*)) 0 units IV .PER PROTOCOL [facility] Last Admin: 02/12/18 00:09 Dose: 8,000 units Heparin Sodium (Porcine) (Heparin Flush Picc/Ml/Cvc(*)) 1 - 3 ml FLUSH 0600, 1800 [facility]; Protocol Last Admin: 02/13/18 17:17 Dose: 2 ml Heparin Sodium/Dextrose (Heparin Drip 25,000 Units(*)) 25,000 units in 500 mls @ 0 mls/hr IV PER RATE [facility]; Protocol Last Admin: 02/13/18 11:14 Dose: 61 mls/hr Nystatin (Nystatin Top Powder*) 1 applic TOPICAL TID [facility] Last Admin: 02/13/18 14:04 Dose: 1 applic Ondansetron HCl (Zofran Inj*) 4 mg IV Q6H PRN PRN Reason: NAUSEA Last Admin: 02/12/18 13:46 Dose: 4 mg Oxycodone HCl (Roxycodone Tab*) 5 mg PO Q8H PRN PRN Reason: PAIN - SEVERE Last Admin: 02/13/18 11:37 Dose: 5 mg Pharmacy Profile Note (Coumadin Per Pharmacy*) 1 note FOLLOW UP .PER PHARMACY PROTOC [facility]; Protocol Polyethylene Glycol/Electrolytes (Miralax*) 17 gm PO DAILY PRN PRN Reason: CONSTIPATION Vital Signs - 8 hr 02/13/18 02/13/18 02/13/18 11:07 11:37 14:03 Temperature 98.1 F Pulse Rate 99 Respiratory 16 18 18 Rate Blood Pressure 145/82 (mmHg) O2 Sat by Pulse 98 Oximetry 02/13/18 14:59 Temperature 97.1 F Pulse Rate 98 Respiratory 18 Rate Blood Pressure 142/93 (mmHg) O2 Sat by Pulse 97 Oximetry Oxygen Devices in Use Now: Nasal Cannula Appearance: Obese, awake. no acute distress Eyes: PERRLA Ears/Nose/Mouth/Throat: Mucous Membranes Moist, - - short neck, large circumference Neck: NL Appearance and Movements; NL JVP Respiratory: - - imited and distant given his body habitus Cardiovascular: RRR, - - imited and distant given his body habitus Extremities: - - edema +2 non pitting Result Diagrams: 02/13/18 05:45 02/13/18 05:45 Microbiology and Other Data: Microbiology 02/09/18 12:38 Aerobic Blood Culture - Preliminary Blood Venous No Growth Day 3 Anaerobic Blood Culture - Preliminary No Growth Day 3 02/11/18 21:25 Gram Stain - Final Sputum Expectorated 02/09/18 13:08 Aerobic Blood Culture - Preliminary Blood Venous No Growth Day 2 Anaerobic Blood Culture - Preliminary No Growth Day 2 02/09/18 17:35 Legionella Urinary Antigen - Final Urine Negative Legionella Antigen Streptococcus pneumoniae Ag Screen - Final Negative S. pneumo Antigen 02/09/18 12:58 Group A Streptococcus Rapid Screen - Final Throat Specimen received for Rapid Strep A Molecular testing 02/09/18 12:58 Influenza Types A,B Antigen - Final Nasopharyngeal Specimen received for Influenza A/B Molecular testing Assess/Plan/Problems-Billing Assessment: 37 y o morbidly obese male with HTN, depression, chronic back pain, possible sleep apnea. Pt a/w worsening SOB after recent URI sx, found to have submassive PE with RV strain - Patient Problems (1) Pulmonary embolism Current Visit: Yes Status: Acute Code(s): I26.99 - OTHER PULMONARY EMBOLISM WITHOUT ACUTE COR PULMONALE SNOMED Code(s): 97496725 Comment: - Heparin drip - Start coumadin tonight as per pharmacy 10 mg tonight will need 2-3 day therapeutic INR before stopping the heparin - he may need home Oxygen/ and CPAP if possible - Will need to taper his O2 to keep sat 92% and will allow OOB to chair tomorrow (2) DVT of lower extremity, bilateral Current Visit: Yes Status: Acute Code(s): I82.403 - ACUTE EMBOLISM AND THOMBOS UNSP DEEP VEINS OF LOW EXTRM, BI SNOMED Code(s): 955931096 (3) Obesities, morbid Current Visit: Yes Status: Acute Code(s): E66.01 - MORBID (SEVERE) OBESITY DUE TO EXCESS CALORIES SNOMED Code(s): 322693803 Comment: - Heparin drip - Start coumadin tonight as per pharmacy 10 mg tonight (4) Chronic back pain Current Visit: Yes Status: Acute Code(s): M54.9 - DORSALGIA, UNSPECIFIED; G89.29 - OTHER CHRONIC PAIN SNOMED Code(s): 570102812
[2018-02-14 01:05] LABS: INR 3.06 (0.77-1.02)
--- NOTE | 2018-02-14 06:31 | CONS ---
MEDICAL ONCOLOGY/HEMATOLOGY CONSULTATION NOTE: DATE OF CONSULTATION: 02/11/18 REASON FOR CONSULTATION: Pulmonary embolism in a massively obese individual. HISTORY OF PRESENT ILLNESS: Mr. Coates is a 37-year-old male with underlying obesity with a body mass index of 85 and also a history of sleep apnea, hypertension, and depression. He reports that he had last been out of the house for approximately 1 week prior to presenting to the emergency room. He developed increasing shortness of breath approximately 1 week prior to admission. Several days before that, he had developed cough and sore throat without fevers, chills or sweats. He had not had any individuals who were infected that he had come in contact with. He lives with his brother and his parents and has little contact with anybody else, as it is difficult for him to get out of the house. Shortness of breath worsened. He denied any lower extremity edema at the present time, but has had some in the past. CTA revealed large pulmonary emboli in the left mainstem bronchus extending into the lingular left lower lobes, as well as in the right middle lobe, segmental arteries of the right lower lobe. He was started on IV heparin. In addition, oxygen is required as much as 8 to 10 L per nasal cannula. A decision was made that he did not need TPA given his respiratory status given with submassive PE with a PESI score of + 1 and a OUMAR score that was low risk judged by ventricular dysfunction. Reports that his breathing has improved since he was put on the heparin. 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 PAST MEDICAL HISTORY: Weight is currently 529 pounds. He reports that his weight has been down to as low as 298 several years ago, then back up to over 580 and currently at his current weight. History of hypertension. History of depression. History of chronic back pain. History of sleep apnea. Status post lumbar surgery in 2004. Status post right ankle surgery. Status post tonsillectomy. SOCIAL HISTORY: Has been a smoker. Alcohol occasionally. No significant illicit drug use. Lives with brother and parents and rarely he is able to get out of the house due to his increased weight. FAMILY HISTORY: Father with pulmonary embolism at age 75. No other family history of blood clots, anemia or cancer. MEDICATIONS: Medications at home prior to admission: 1. Atenolol 100 mg daily. 2. Cyclobenzaprine/Flexeril 5 to 10 mg t.i.d. p.r.n. 3. Fluoxetine 40 mg daily. 4. Ibuprofen p.r.n. 5. Lisinopril/hydrochlorothiazide 20/25 daily. 6. Oxycodone 5 mg q.6 hours p.r.n. back pain. REVIEW OF SYSTEMS: No recent infections. No significant neurologic complaints. No significant changes in bowel or bladder habits. Respiratory issues as discussed above. Weight as discussed above. Review of systems are otherwise negative except as discussed above. PHYSICAL EXAM: Vital signs: Blood pressure 132/86, pulse 101, afebrile. O2 saturation 95% on 6 L. HEENT: PERRL, EOMI. No scleral icterus. Lungs: Clear anteriorly. Heart: Regular rate and rhythm. Abdomen: Benign. Extremities: No edema. Neurologic Exam: Without focal deficits. IMPRESSION: A 37-year-old male with a history of massive obesity with a BMI of 85. He now presents with pulmonary emboli. Although mobility outside of the hospital and correction setting is not generally considered a risk factor for pulmonary emboli given his massive weight and his lack of getting out of the house other than occasionally which certainly could be considered a risk factor for him at the present time. Over the past several years, we have switched typically from IV heparin to Lovenox and also have switched from Coumadin to the direct acting oral anticoagulant or DOAC. Multiple studies have been done with these new or direct acting oral anticoagulants with very few of his studies have had a significant proportion of individuals with high BMIs. The International Society of Thrombosis and Hemostasis published a physician paper in the journal of thrombosis and hemostasis in September 2016 labeled use of the direct oral anticoagulants in obese patients, guidance from the SSC of the [employer]STH. They clearly state a suggestion that DOAC should not be used in patients with a BMI of greater than 40 or weight of greater than 120 kilograms. They state that this is because there are limited clinical data available with patients of extremes of weight. They also state that the available pharmacokinetic and pharmacodynamic evidence suggest that decreased drug exposures reduce peak concentration and shorter half life occur with increasing weight. They stated this raises concerns about under dosing the populations with extremes of weight. As noted above, this is for BMI greater than 40, well under his BMI of 85. In addition, there is evidence that the average length of time that it takes for Coumadin to reach therapeutic levels in individuals of high BMI is 8 to 10 days rather than a typical 4 to 6 days. Until he reaches therapeutic INR levels and has at least been on Coumadin for 5 days, he will need to remain on IV heparin, as Lovenox is not an appropriated drug in this setting. Once he has reached full therapeutic dosing of Coumadin with INRs between 2 and 3 and while it has been at least 4 to 5 days since starting Coumadin, the Lovenox can be discontinued and he can be discharged from the hospital with careful followup in terms of INRs. This is discussed with him that this could be considered to some extent, a provoked DVT, but since the underlying risk factor or the mobility will not have disappeared over the next several months that he should be treated similar to somebody who has an unprovoked DVT/PE. While recent guidelines have suggested that the length of time needed may not be as long as previously indicated. In this situation, I would consider a minimum of 6 months of anticoagulation. At the end of that period of time, repeat Doppler studies of his legs would be of interest given his massive obesity and his immobility. It would be important to make sure that the clot has dissipated by that time. [id number]/[facility] #: [id number] VENKATESH
[2018-02-14] MEDS: Heparin DRIP 25,000 UNITS(*) 25,000 UNITS/500 ML BAG IV SCH ×3 (06:58→23:43)
[2018-02-14 07:36] LABS: Hematocrit 40 % (42-52); Hemoglobin 13.1 g/dl (14.0-18.0); Mean Corpuscular HGB Conc 33 g/dl (31-36); Mean Corpuscular Hemoglobin 29 pg (27-31); Mean Corpuscular Volume 87 fL (80-94); Mean Platelet Volume 9.4 fL (7.4-10.4); Platelet Count 192 10^3/ul (150-450); Red Blood Count 4.62 10^6/ul (4.00-5.40); Red Cell Distribution Width 15 % (10.5-15); White Blood Count 7.7 10^3/ul (3.5-10.8)
[2018-02-14 07:46] LABS: EGFR Non-African American 75.3 (>60)
[2018-02-14] MEDS: FLUoxetine CAP* 20 MG PO SCH (09:00)
[2018-02-14] MEDS: Nystatin TOP POWDER* 15 GM BTL TOPICAL SCH ×3 (09:00→21:11)
[2018-02-14] MEDS: Famotidine TAB* 20 MG PO SCH (09:00)
[2018-02-14] MEDS: oxyCODONE TAB* 5 MG TAB PO PRN ×2 (13:40→22:07)
--- NOTE | 2018-02-14 18:40 | PN ---
Subjective Date of Service: 02/14/18 Interval History: Feels good, no shortness of breath, no chest pain but has not been out of bed. Remains on 2L o2. No concerns or questions. Past Medical History: Unchanged from Admission Objective Active Medications: Acetaminophen (Tylenol Tab*) 650 mg PO Q6H PRN PRN Reason: FEVER/PAIN Last Admin: 02/13/18 19:58 Dose: 650 mg Albuterol (Ventolin 2.5 Mg/3 Ml Neb.Angelica*) 2.5 mg INH Q4H PRN PRN Reason: SOB/WHEEZING Cyclobenzaprine HCl (Flexeril Tab*) 5 mg PO TID PRN PRN Reason: SPASMS - MUSCLE Last Admin: 02/13/18 20:00 Dose: 5 mg Famotidine (Pepcid Tab*) 20 mg PO DAILY [facility] Last Admin: 02/14/18 09:00 Dose: 20 mg Fluoxetine HCl (Prozac Cap*) 40 mg PO DAILY [facility] Last Admin: 02/14/18 09:00 Dose: 40 mg Heparin Sodium (Porcine) (Heparin Vial(*)) 0 units IV .PER PROTOCOL [facility] Last Admin: 02/12/18 00:09 Dose: 8,000 units Heparin Sodium (Porcine) (Heparin Flush Picc/Ml/Cvc(*)) 1 - 3 ml FLUSH 0600, 1800 [facility]; Protocol Last Admin: 02/14/18 17:23 Dose: 2 ml Heparin Sodium/Dextrose (Heparin Drip 25,000 Units(*)) 25,000 units in 500 mls @ 0 mls/hr IV PER RATE [facility]; Protocol Last Admin: 02/14/18 15:03 Dose: 61 mls/hr Nystatin (Nystatin Top Powder*) 1 applic TOPICAL TID [facility] Last Admin: 02/14/18 13:40 Dose: 1 applic Ondansetron HCl (Zofran Inj*) 4 mg IV Q6H PRN PRN Reason: NAUSEA Last Admin: 02/12/18 13:46 Dose: 4 mg Oxycodone HCl (Roxycodone Tab*) 5 mg PO Q8H PRN PRN Reason: PAIN - SEVERE Last Admin: 02/14/18 13:40 Dose: 5 mg Pharmacy Profile Note (Coumadin Per Pharmacy*) 1 note FOLLOW UP .PER PHARMACY PROTOC [facility]; Protocol Polyethylene Glycol/Electrolytes (Miralax*) 17 gm PO DAILY PRN PRN Reason: CONSTIPATION Vital Signs - 8 hr 02/14/18 02/14/18 02/14/18 13:40 15:05 15:43 Temperature 98.3 F Pulse Rate 103 Respiratory 18 17 16 Rate O2 Sat by Pulse 95 Oximetry Oxygen Devices in Use Now: Nasal Cannula Appearance: alert, nontoxic, no respiratory distress, able to speak in full sentences Eyes: No Scleral Icterus Neck: - - unable to see jvp Respiratory: Symmetrical Chest Expansion and Respiratory Effort, - - diminished breath sounds at the bases Cardiovascular: NL Sounds; No Murmurs; No JVD, RRR Abdominal: NL Sounds; No Tenderness; No Distention, - - obese Lymphatic: No Cervical Adenopathy Extremities: No Edema Skin: No Rash or Ulcers, - - dry Neurological: Alert and Oriented x 3 Result Diagrams: 02/14/18 06:51 02/14/18 06:51 Microbiology and Other Data: Microbiology 02/09/18 12:38 Aerobic Blood Culture - Preliminary Blood Venous No Growth Day 3 Anaerobic Blood Culture - Preliminary No Growth Day 3 02/11/18 21:25 Gram Stain - Final Sputum Expectorated 02/09/18 13:08 Aerobic Blood Culture - Preliminary Blood Venous No Growth Day 2 Anaerobic Blood Culture - Preliminary No Growth Day 2 02/09/18 17:35 Legionella Urinary Antigen - Final Urine Negative Legionella Antigen Streptococcus pneumoniae Ag Screen - Final Negative S. pneumo Antigen 02/09/18 12:58 Group A Streptococcus Rapid Screen - Final Throat Specimen received for Rapid Strep A Molecular testing 02/09/18 12:58 Influenza Types A,B Antigen - Final Nasopharyngeal Specimen received for Influenza A/B Molecular testing Assess/Plan/Problems-Billing Assessment: This is a 37 year old man with BMI 85, depression, chronic low back pain who presented to the ED with SOB and was found to have a submassive PE with RV strain. - Patient Problems (1) Pulmonary embolism Current Visit: Yes Status: Acute Code(s): I26.99 - OTHER PULMONARY EMBOLISM WITHOUT ACUTE COR PULMONALE SNOMED Code(s): 93040720 Comment: Unprovoked Appreciate Dr. Cooney's consult--he recommends 5 days of overlap with coumadin/ warfarin Warfarin on hold today for supratherapeutic INR, recheck tomorrow and restart at reduced dose OOB today (2) Chronic back pain Current Visit: Yes Status: Acute Code(s): M54.9 - DORSALGIA, UNSPECIFIED; G89.29 - OTHER CHRONIC PAIN SNOMED Code(s): 300575871 Comment: at baseline (3) DVT of lower extremity, bilateral Current Visit: Yes Status: Acute Code(s): I82.403 - ACUTE EMBOLISM AND THOMBOS UNSP DEEP VEINS OF LOW EXTRM, BI SNOMED Code(s): 255360583 Comment: anticoagulation as above (4) Obesities, morbid Current Visit: Yes Status: Acute Code(s): E66.01 - MORBID (SEVERE) OBESITY DUE TO EXCESS CALORIES SNOMED Code(s): 506514302 Comment: needs [facility] referral at discharge
[2018-02-14] MEDS: Acetaminophen TAB* 325 MG PO PRN (19:49)
[2018-02-15 04:59] LABS: ABS Basophils 0 10^3/ul (0-0.2); ABS Eosinophils 0.4 10^3/ul (0-0.6); ABS Lymphocytes 2.1 10^3/ul (1.0-4.8); ABS Monocytes 0.4 10^3/ul (0-0.8); ABS Neutrophils 4.7 10^3/ul (1.5-7.7); ABS Nucleated RBC 0 10^3/ul; Hematocrit 38 % (42-52); Hemoglobin 12.6 g/dl (14.0-18.0); Lymphocyte % 27.5 % (25-47); Mean Corpuscular HGB Conc 33 g/dl (31-36); Mean Corpuscular Hemoglobin 29 pg (27-31); Mean Corpuscular Volume 86 fL (80-94); Mean Platelet Volume 9.4 fL (7.4-10.4); Nucleated Red Blood Cells % 0.1; Platelet Count 167 10^3/ul (150-450); Red Blood Count 4.43 10^6/ul (4.00-5.40); Red Cell Distribution Width 14 % (10.5-15); White Blood Count 7.7 10^3/ul (3.5-10.8)
[2018-02-15 05:14] LABS: EGFR Non-African American 83.2 (>60)
[2018-02-15 05:17] LABS: INR 4.12 (0.77-1.02)
[2018-02-15] MEDS: FLUoxetine CAP* 20 MG PO SCH (09:02)
[2018-02-15] MEDS: Famotidine TAB* 20 MG PO SCH (09:02)
[2018-02-15] MEDS: oxyCODONE TAB* 5 MG TAB PO PRN ×2 (09:03→20:21)
[2018-02-15] MEDS: Nystatin TOP POWDER* 15 GM BTL TOPICAL SCH ×3 (09:06→23:20)
[2018-02-15] MEDS: Heparin DRIP 25,000 UNITS(*) 25,000 UNITS/500 ML BAG IV SCH ×2 (09:26→19:43)
--- NOTE | 2018-02-15 14:59 | PN ---
Subjective Date of Service: 02/15/18 Interval History: Mr. Coates feels "pretty good" today. He just got back in to bed after having lunch in the chair. He also was able to take a few steps in his room. This is not too far from his baseline, as he says he spends most of the day in bed recently. He has no shortness of breath, no chest pain, no pleuritic symptoms. Past Medical History: Unchanged from Admission Objective Active Medications: Acetaminophen (Tylenol Tab*) 650 mg PO Q6H PRN PRN Reason: FEVER/PAIN Last Admin: 02/14/18 19:49 Dose: 650 mg Albuterol (Ventolin 2.5 Mg/3 Ml Neb.Angelica*) 2.5 mg INH Q4H PRN PRN Reason: SOB/WHEEZING Cyclobenzaprine HCl (Flexeril Tab*) 5 mg PO TID PRN PRN Reason: SPASMS - MUSCLE Last Admin: 02/13/18 20:00 Dose: 5 mg Famotidine (Pepcid Tab*) 20 mg PO DAILY [facility] Last Admin: 02/15/18 09:02 Dose: 20 mg Fluoxetine HCl (Prozac Cap*) 40 mg PO DAILY [facility] Last Admin: 02/15/18 09:02 Dose: 40 mg Heparin Sodium (Porcine) (Heparin Vial(*)) 0 units IV .PER PROTOCOL [facility] Last Admin: 02/12/18 00:09 Dose: 8,000 units Heparin Sodium (Porcine) (Heparin Flush Picc/Ml/Cvc(*)) 1 - 3 ml FLUSH 0600, 1800 [facility]; Protocol Last Admin: 02/15/18 04:26 Dose: 2 ml Heparin Sodium/Dextrose (Heparin Drip 25,000 Units(*)) 25,000 units in 500 mls @ 0 mls/hr IV PER RATE [facility]; Protocol Last Admin: 02/15/18 09:26 Dose: 53 mls/hr Nystatin (Nystatin Top Powder*) 1 applic TOPICAL TID [facility] Last Admin: 02/15/18 14:42 Dose: 1 applic Ondansetron HCl (Zofran Inj*) 4 mg IV Q6H PRN PRN Reason: NAUSEA Last Admin: 02/12/18 13:46 Dose: 4 mg Oxycodone HCl (Roxycodone Tab*) 5 mg PO Q8H PRN PRN Reason: PAIN - SEVERE Last Admin: 02/15/18 09:03 Dose: 5 mg Pharmacy Profile Note (Coumadin Per Pharmacy*) 1 note FOLLOW UP .PER PHARMACY PROTOC [facility]; Protocol Polyethylene Glycol/Electrolytes (Miralax*) 17 gm PO DAILY PRN PRN Reason: CONSTIPATION Vital Signs - 8 hr 02/15/18 02/15/18 02/15/18 07:28 09:03 13:33 Temperature 97.6 F Pulse Rate 97 Respiratory 24 20 20 Rate Blood Pressure 151/83 (mmHg) O2 Sat by Pulse 98 Oximetry Oxygen Devices in Use Now: Nasal Cannula Appearance: lying in bed in no distress Eyes: No Scleral Icterus Ears/Nose/Mouth/Throat: NL Teeth, Lips, Gums Neck: - - cannot see jugular vein Respiratory: Symmetrical Chest Expansion and Respiratory Effort, - - diminished breath sounds at both bases Cardiovascular: NL Sounds; No Murmurs; No JVD, RRR Abdominal: NL Sounds; No Tenderness; No Distention, - - obese Lymphatic: No Cervical Adenopathy Extremities: - - calf tenderness L>R Skin: No Rash or Ulcers Neurological: Alert and Oriented x 3 Result Diagrams: 02/15/18 04:45 02/15/18 04:45 Microbiology and Other Data: Microbiology 02/09/18 12:38 Aerobic Blood Culture - Preliminary Blood Venous No Growth Day 3 Anaerobic Blood Culture - Preliminary No Growth Day 3 02/11/18 21:25 Gram Stain - Final Sputum Expectorated 02/09/18 13:08 Aerobic Blood Culture - Preliminary Blood Venous No Growth Day 2 Anaerobic Blood Culture - Preliminary No Growth Day 2 02/09/18 17:35 Legionella Urinary Antigen - Final Urine Negative Legionella Antigen Streptococcus pneumoniae Ag Screen - Final Negative S. pneumo Antigen 02/09/18 12:58 Group A Streptococcus Rapid Screen - Final Throat Specimen received for Rapid Strep A Molecular testing 02/09/18 12:58 Influenza Types A,B Antigen - Final Nasopharyngeal Specimen received for Influenza A/B Molecular testing Assess/Plan/Problems-Billing Assessment: This is a 37 year old man with BMI 85, depression, chronic low back pain who presented to the ED with SOB and was found to have a submassive PE with RV strain. - Patient Problems (1) Pulmonary embolism Current Visit: Yes Status: Acute Code(s): I26.99 - OTHER PULMONARY EMBOLISM WITHOUT ACUTE COR PULMONALE SNOMED Code(s): 47337695 Comment: Unprovoked Dr. Cooney recommended 5 days of overlap with coumadin and heparin, which would be tomorrow INR continues to climb after receiving 2 doses of warfarin 10 mg 02/12 and . On hold 02/14 and will continue to hold today. (2) Chronic back pain Current Visit: Yes Status: Acute Code(s): M54.9 - DORSALGIA, UNSPECIFIED; G89.29 - OTHER CHRONIC PAIN SNOMED Code(s): 350553056 Comment: at baseline (3) DVT of lower extremity, bilateral Current Visit: Yes Status: Acute Code(s): I82.403 - ACUTE EMBOLISM AND THOMBOS UNSP DEEP VEINS OF LOW EXTRM, BI SNOMED Code(s): 413738384 Comment: anticoagulation as above (4) Obesities, morbid Current Visit: Yes Status: Acute Code(s): E66.01 - MORBID (SEVERE) OBESITY DUE TO EXCESS CALORIES SNOMED Code(s): 073267199 Comment: [facility] at discharge Status and Disposition: needs inpatient level of care of a heparin drip
[2018-02-15] MEDS: Cyclobenzaprine TAB* 10 MG PO PRN (20:20)
[2018-02-16 04:37] LABS: Hematocrit 37 % (42-52); Hemoglobin 12.1 g/dl (14.0-18.0); Mean Corpuscular HGB Conc 33 g/dl (31-36); Mean Corpuscular Hemoglobin 28 pg (27-31); Mean Corpuscular Volume 86 fL (80-94); Mean Platelet Volume 9.2 fL (7.4-10.4); Platelet Count 164 10^3/ul (150-450); Red Blood Count 4.26 10^6/ul (4.00-5.40); Red Cell Distribution Width 14 % (10.5-15); White Blood Count 7.8 10^3/ul (3.5-10.8)
[2018-02-16 04:45] LABS: INR 2.44 (0.77-1.02)
[2018-02-16] MEDS: Heparin DRIP 25,000 UNITS(*) 25,000 UNITS/500 ML BAG IV SCH ×2 (06:40→18:15)
[2018-02-16] MEDS: Acetaminophen TAB* 325 MG PO PRN ×2 (07:13→20:21)
[2018-02-16] MEDS: Famotidine TAB* 20 MG PO SCH (07:14)
[2018-02-16] MEDS: FLUoxetine CAP* 20 MG PO SCH (07:14)
[2018-02-16] MEDS: Nystatin TOP POWDER* 15 GM BTL TOPICAL SCH ×3 (07:14→20:23)
[2018-02-16] MEDS: oxyCODONE TAB* 5 MG TAB PO PRN ×2 (13:18→23:21)
--- NOTE | 2018-02-16 14:53 | PN ---
Subjective Date of Service: 02/16/18 Interval History: Patient reports continued but improved SOB with exertion and has persistent needs for O2. Patient has persistent pleuritic pain in chest and aching pain in B/L LE. Patient denies F/C, N/V, abdominal pain, dysuria, diarrhea, bruising, hemoptysis, or other pain. Patient amenable to more help at home and rehab at discharge. Past Medical History: Unchanged from Admission Objective Active Medications: Acetaminophen (Tylenol Tab*) 650 mg PO Q6H PRN PRN Reason: FEVER/PAIN Last Admin: 02/16/18 07:13 Dose: 650 mg Albuterol (Ventolin 2.5 Mg/3 Ml Neb.Angelica*) 2.5 mg INH Q4H PRN PRN Reason: SOB/WHEEZING Cyclobenzaprine HCl (Flexeril Tab*) 5 mg PO TID PRN PRN Reason: SPASMS - MUSCLE Last Admin: 02/15/18 20:20 Dose: 5 mg Famotidine (Pepcid Tab*) 20 mg PO DAILY [facility] Last Admin: 02/16/18 07:14 Dose: 20 mg Fluoxetine HCl (Prozac Cap*) 40 mg PO DAILY [facility] Last Admin: 02/16/18 07:14 Dose: 40 mg Heparin Sodium (Porcine) (Heparin Vial(*)) 0 units IV .PER PROTOCOL [facility] Last Admin: 02/12/18 00:09 Dose: 8,000 units Heparin Sodium (Porcine) (Heparin Flush Picc/Ml/Cvc(*)) 1 - 3 ml FLUSH 0600, 1800 [facility]; Protocol Last Admin: 02/16/18 04:20 Dose: 2 ml Heparin Sodium/Dextrose (Heparin Drip 25,000 Units(*)) 25,000 units in 500 mls @ 0 mls/hr IV PER RATE [facility]; Protocol Last Admin: 02/16/18 06:40 Dose: 48 mls/hr Nystatin (Nystatin Top Powder*) 1 applic TOPICAL TID [facility] Last Admin: 02/16/18 13:19 Dose: 1 applic Ondansetron HCl (Zofran Inj*) 4 mg IV Q6H PRN PRN Reason: NAUSEA Last Admin: 02/12/18 13:46 Dose: 4 mg Oxycodone HCl (Roxycodone Tab*) 5 mg PO Q8H PRN PRN Reason: PAIN - SEVERE Last Admin: 02/16/18 13:18 Dose: 5 mg Pharmacy Profile Note (Coumadin Per Pharmacy*) 1 note FOLLOW UP .PER PHARMACY PROTOC [facility]; Protocol Polyethylene Glycol/Electrolytes (Miralax*) 17 gm PO DAILY PRN PRN Reason: CONSTIPATION Warfarin Sodium (Coumadin Tab(*)) 5 mg PO 1700 ONE Stop: 02/16/18 17:01 Vital Signs - 8 hr 02/16/18 02/16/18 02/16/18 07:48 08:00 08:34 Temperature 98.6 F Pulse Rate 88 92 Respiratory 18 18 18 Rate Blood Pressure 152/96 (mmHg) O2 Sat by Pulse 96 100 Oximetry 02/16/18 13:18 Temperature Pulse Rate Respiratory 16 Rate Blood Pressure (mmHg) O2 Sat by Pulse Oximetry Oxygen Devices in Use Now: Nasal Cannula Appearance: Patient is a 37yo male who appears stated age and is sitting in the bed in NAD. Eyes: No Scleral Icterus, PERRLA Ears/Nose/Mouth/Throat: NL Teeth, Lips, Gums, Clear Oropharnyx, Mucous Membranes Moist Neck: NL Appearance and Movements; NL JVP, Trachea Midline Respiratory: Symmetrical Chest Expansion and Respiratory Effort, Clear to Auscultation Cardiovascular: NL Sounds; No Murmurs; No JVD, RRR, - - 1+ edema B/L. Abdominal: NL Sounds; No Tenderness; No Distention, No Hepatosplenomegaly Lymphatic: No Cervical Adenopathy Extremities: No Clubbing, Cyanosis Skin: No Rash or Ulcers, No Nodules or Sclerosis Neurological: Alert and Oriented x 3, NL Sensation, NL Muscle Strength and Tone , - - CN II-XII intact. Result Diagrams: 02/16/18 04:20 02/15/18 04:45 Microbiology and Other Data: Microbiology 02/09/18 12:38 Aerobic Blood Culture - Preliminary Blood Venous No Growth Day 3 Anaerobic Blood Culture - Preliminary No Growth Day 3 02/11/18 21:25 Gram Stain - Final Sputum Expectorated 02/09/18 13:08 Aerobic Blood Culture - Preliminary Blood Venous No Growth Day 2 Anaerobic Blood Culture - Preliminary No Growth Day 2 02/09/18 17:35 Legionella Urinary Antigen - Final Urine Negative Legionella Antigen Streptococcus pneumoniae Ag Screen - Final Negative S. pneumo Antigen 02/09/18 12:58 Group A Streptococcus Rapid Screen - Final Throat Specimen received for Rapid Strep A Molecular testing 02/09/18 12:58 Influenza Types A,B Antigen - Final Nasopharyngeal Specimen received for Influenza A/B Molecular testing Assess/Plan/Problems-Billing Assessment: This is a 37 year old man with BMI 85, depression, chronic low back pain who presented to the ED with SOB and was found to have a submassive PE with RV strain who has improving hypoxia and is being initiated on coumadin therapy. - Patient Problems (1) Pulmonary embolism Current Visit: Yes Status: Acute Code(s): I26.99 - OTHER PULMONARY EMBOLISM WITHOUT ACUTE COR PULMONALE SNOMED Code(s): 19728814 Comment: - Unprovoked except for relative immmobility and obesity - Dr. Cooney recommended 5 days of overlap with coumadin and heparin, which would be Saturday 02/17 - INR decreased today to therapeutic range. Resume at 5mg daily. - Will need close monitoring outpatient - Patient has limited mobility and would be unable to get into or out of house in an emergency due to new Dyspnea. Will need Rehab. - Will need repeat echocardiogram in 3-6 months and LE doppler to assess for RV function, CTEPH, and Resolution of LE DVT. (2) Obesities, morbid Current Visit: Yes Status: Acute Code(s): E66.01 - MORBID (SEVERE) OBESITY DUE TO EXCESS CALORIES SNOMED Code(s): 739515123 Comment: - [facility] discharge - Disussed the role of weight in current disease process. (3) Hypoxia Current Visit: Yes Status: Acute Code(s): R09.02 - HYPOXEMIA SNOMED Code(s ): 173881356 Comment: - Likely due to combination of acute PE and Obesity hypoventilation syndrome due to Super-Morbid Obesity - Will require Home Oxygen for activity. (4) Chronic back pain Current Visit: Yes Status: Acute Code(s): M54.9 - DORSALGIA, UNSPECIFIED; G89.29 - OTHER CHRONIC PAIN SNOMED Code(s): 392885864 Comment: - At baseline (5) DVT of lower extremity, bilateral Current Visit: Yes Status: Acute Code(s): I82.403 - ACUTE EMBOLISM AND THOMBOS UNSP DEEP VEINS OF LOW EXTRM, BI SNOMED Code(s): 767840891 Comment: - Anticoagulation as above Status and Disposition: needs inpatient level of care of a heparin drip and has been identified to need ANANDA at discharge.
--- NOTE | 2018-02-16 15:46 | PN ---
Progress Note - Progress Note Date of Service: 02/16/18 SOAP: Subjective: []Still SOB but better then on admission. Sitting or laying still fine, walking saturation down to 85%. No chest pain. Some swelling in ankles. Acetaminophen (Tylenol Tab*) 650 mg PO Q6H PRN PRN Reason: FEVER/PAIN Last Admin: 02/16/18 07:13 Dose: 650 mg Albuterol (Ventolin 2.5 Mg/3 Ml Neb.Angelica*) 2.5 mg INH Q4H PRN PRN Reason: SOB/WHEEZING Cyclobenzaprine HCl (Flexeril Tab*) 5 mg PO TID PRN PRN Reason: SPASMS - MUSCLE Last Admin: 02/15/18 20:20 Dose: 5 mg Famotidine (Pepcid Tab*) 20 mg PO DAILY [facility] Last Admin: 02/16/18 07:14 Dose: 20 mg Fluoxetine HCl (Prozac Cap*) 40 mg PO DAILY [facility] Last Admin: 02/16/18 07:14 Dose: 40 mg Heparin Sodium (Porcine) (Heparin Vial(*)) 0 units IV .PER PROTOCOL [facility] Last Admin: 02/12/18 00:09 Dose: 8,000 units Heparin Sodium (Porcine) (Heparin Flush Picc/Ml/Cvc(*)) 1 - 3 ml FLUSH 0600, 1800 [facility]; Protocol Last Admin: 02/16/18 04:20 Dose: 2 ml Heparin Sodium/Dextrose (Heparin Drip 25,000 Units(*)) 25,000 units in 500 mls @ 0 mls/hr IV PER RATE [facility]; Protocol Last Admin: 02/16/18 06:40 Dose: 48 mls/hr Nystatin (Nystatin Top Powder*) 1 applic TOPICAL TID [facility] Last Admin: 02/16/18 13:19 Dose: 1 applic Ondansetron HCl (Zofran Inj*) 4 mg IV Q6H PRN PRN Reason: NAUSEA Last Admin: 02/12/18 13:46 Dose: 4 mg Oxycodone HCl (Roxycodone Tab*) 5 mg PO Q8H PRN PRN Reason: PAIN - SEVERE Last Admin: 02/16/18 13:18 Dose: 5 mg Pharmacy Profile Note (Coumadin Per Pharmacy*) 1 note FOLLOW UP .PER PHARMACY PROTOC [facility]; Protocol Polyethylene Glycol/Electrolytes (Miralax*) 17 gm PO DAILY PRN PRN Reason: CONSTIPATION Warfarin Sodium (Coumadin Tab(*)) 5 mg PO 1700 ONE Stop: 02/16/18 17:01 Objective: [] Vital Signs Temp Pulse Resp BP Pulse Ox 98.6 F 92 18 152/96 100 02/16/18 08:34 02/16/18 08:34 02/16/18 14:50 02/16/18 08:34 02/16/18 08:34 HEENT no oral lesions decreased BS and heart sounds obese, abd NT +2 [facility] Neuro - Non focal Assessment: []37 year old morbid obesity with idiopathic PE. Currently on Coumadin. Plan: []1. Coumadin to 5 mg daily and follow INR 2. Will follow during admission and he will see Dr. 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 3. Will be on Coumadin indefinitely
[2018-02-16] MEDS ORDERED: Warfarin TAB(*) 5 MG PO ONE (17:00)
[2018-02-17] MEDS: Heparin DRIP 25,000 UNITS(*) 25,000 UNITS/500 ML BAG IV SCH (04:51)
[2018-02-17 05:16] LABS: ABS Basophils 0 10^3/ul (0-0.2); ABS Eosinophils 0.3 10^3/ul (0-0.6); ABS Lymphocytes 2.4 10^3/ul (1.0-4.8); ABS Monocytes 0.5 10^3/ul (0-0.8); ABS Neutrophils 3.8 10^3/ul (1.5-7.7); ABS Nucleated RBC 0 10^3/ul; Eosinophil % 4.3 % (0-6); Hematocrit 37 % (42-52); Hemoglobin 12.2 g/dl (14.0-18.0); Lymphocyte % 34.4 % (25-47); Mean Corpuscular HGB Conc 33 g/dl (31-36); Mean Corpuscular Hemoglobin 29 pg (27-31); Mean Corpuscular Volume 86 fL (80-94); Mean Platelet Volume 9.4 fL (7.4-10.4); Nucleated Red Blood Cells % 0.1; Platelet Count 145 10^3/ul (150-450); Red Blood Count 4.27 10^6/ul (4.00-5.40); Red Cell Distribution Width 15 % (10.5-15)
[2018-02-17 05:24] LABS: INR 2.15 (0.77-1.02)
[2018-02-17 05:37] LABS: EGFR Non-African American 89.3 (>60)
[2018-02-17] MEDS: FLUoxetine CAP* 20 MG PO SCH (07:13)
[2018-02-17] MEDS: Famotidine TAB* 20 MG PO SCH ×2 (07:13→20:18)
[2018-02-17] MEDS: Nystatin TOP POWDER* 15 GM BTL TOPICAL SCH ×3 (07:18→20:18)
[2018-02-17] MEDS: Acetaminophen TAB* 325 MG PO PRN (09:34)
--- NOTE | 2018-02-17 15:04 | PN ---
Subjective Date of Service: 02/17/18 Interval History: Patient is feeling well. Decrease in pleuritic chest and aching LE pain. Patient has improved SOB with exertion. Patient denies F/C, N/V, abdominal pain , dysuria, hematuria, or other pain. Patient is in good spirits about disease and seems motivated to work. Past Medical History: Unchanged from Admission Objective Active Medications: Acetaminophen (Tylenol Tab*) 650 mg PO Q6H PRN PRN Reason: FEVER/PAIN Last Admin: 02/17/18 09:34 Dose: 650 mg Albuterol (Ventolin 2.5 Mg/3 Ml Neb.Angelica*) 2.5 mg INH Q4H PRN PRN Reason: SOB/WHEEZING Cyclobenzaprine HCl (Flexeril Tab*) 5 mg PO TID PRN PRN Reason: SPASMS - MUSCLE Last Admin: 02/15/18 20:20 Dose: 5 mg Famotidine (Pepcid Tab*) 20 mg PO DAILY [facility] Last Admin: 02/17/18 07:13 Dose: 20 mg Fluoxetine HCl (Prozac Cap*) 40 mg PO DAILY [facility] Last Admin: 02/17/18 07:13 Dose: 40 mg Heparin Sodium (Porcine) (Heparin Vial(*)) 0 units IV .PER PROTOCOL [facility] Last Admin: 02/12/18 00:09 Dose: 8,000 units Heparin Sodium (Porcine) (Heparin Flush Picc/Ml/Cvc(*)) 1 - 3 ml FLUSH 0600, 1800 [facility]; Protocol Last Admin: 02/17/18 04:11 Dose: 2 ml Nystatin (Nystatin Top Powder*) 1 applic TOPICAL TID [facility] Last Admin: 02/17/18 07:18 Dose: 1 applic Ondansetron HCl (Zofran Inj*) 4 mg IV Q6H PRN PRN Reason: NAUSEA Last Admin: 02/12/18 13:46 Dose: 4 mg Oxycodone HCl (Roxycodone Tab*) 5 mg PO Q8H PRN PRN Reason: PAIN - SEVERE Last Admin: 02/16/18 23:21 Dose: 5 mg Pharmacy Profile Note (Coumadin Per Pharmacy*) 1 note FOLLOW UP .PER PHARMACY PROTOC [facility]; Protocol Polyethylene Glycol/Electrolytes (Miralax*) 17 gm PO DAILY PRN PRN Reason: CONSTIPATION Warfarin Sodium (Coumadin Tab(*)) 5 mg PO 1700 ONE Stop: 02/17/18 17:01 Vital Signs - 8 hr 02/17/18 02/17/18 07:12 07:22 Temperature 97.4 F Pulse Rate 96 Respiratory 26 20 Rate Blood Pressure 141/91 (mmHg) O2 Sat by Pulse 97 Oximetry Oxygen Devices in Use Now: Nasal Cannula Appearance: Patient is a 37yo male who appears older than stated age and is sitting in the bed in NAD. Eyes: No Scleral Icterus, PERRLA Ears/Nose/Mouth/Throat: NL Teeth, Lips, Gums, Clear Oropharnyx, Mucous Membranes Moist Neck: NL Appearance and Movements; NL JVP, Trachea Midline Respiratory: Symmetrical Chest Expansion and Respiratory Effort, Clear to Auscultation Cardiovascular: NL Sounds; No Murmurs; No JVD, RRR, - - 1+ edema in B/L LE. Abdominal: NL Sounds; No Tenderness; No Distention, No Hepatosplenomegaly Lymphatic: No Cervical Adenopathy Extremities: No Clubbing, Cyanosis Skin: No Rash or Ulcers, No Nodules or Sclerosis Neurological: Alert and Oriented x 3, NL Sensation, NL Muscle Strength and Tone , - - CN II-XII intact. Result Diagrams: 02/17/18 04:20 02/17/18 04:20 Microbiology and Other Data: Microbiology 02/09/18 12:38 Aerobic Blood Culture - Preliminary Blood Venous No Growth Day 3 Anaerobic Blood Culture - Preliminary No Growth Day 3 02/11/18 21:25 Gram Stain - Final Sputum Expectorated 02/09/18 13:08 Aerobic Blood Culture - Preliminary Blood Venous No Growth Day 2 Anaerobic Blood Culture - Preliminary No Growth Day 2 02/09/18 17:35 Legionella Urinary Antigen - Final Urine Negative Legionella Antigen Streptococcus pneumoniae Ag Screen - Final Negative S. pneumo Antigen 02/09/18 12:58 Group A Streptococcus Rapid Screen - Final Throat Specimen received for Rapid Strep A Molecular testing 02/09/18 12:58 Influenza Types A,B Antigen - Final Nasopharyngeal Specimen received for Influenza A/B Molecular testing Assess/Plan/Problems-Billing Assessment: This is a 37 year old man with BMI 85, depression, chronic low back pain who presented to the ED with SOB and was found to have a submassive PE with RV strain who has improving hypoxia and is being initiated on coumadin therapy. - Patient Problems (1) Pulmonary embolism Current Visit: Yes Status: Acute Code(s): I26.99 - OTHER PULMONARY EMBOLISM WITHOUT ACUTE COR PULMONALE SNOMED Code(s): 12587391 Comment: - Unprovoked except for relative immmobility and obesity - Dr. Cooney recommended 5 days of overlap with coumadin and heparin, which would be Saturday 02/17 - INR decreased today to therapeutic range. Resume at 5mg daily. - Will need close monitoring outpatient - Patient has limited mobility and would be unable to get into or out of house in an emergency due to new Dyspnea. Will need Rehab. - Will need repeat echocardiogram in 3-6 months and LE doppler to assess for RV function, CTEPH, and Resolution of LE DVT. (2) Obesities, morbid Current Visit: Yes Status: Acute Code(s): E66.01 - MORBID (SEVERE) OBESITY DUE TO EXCESS CALORIES SNOMED Code(s): 126277604 Comment: - Needs [facility] referral at discharge - Disussed the role of weight in current disease process. (3) Hypoxia Current Visit: Yes Status: Acute Code(s): R09.02 - HYPOXEMIA SNOMED Code(s ): 846376476 Comment: - Likely due to combination of acute PE and Obesity hypoventilation syndrome due to Super-Morbid Obesity - Will require Home Oxygen for activity. (4) Chronic back pain Current Visit: Yes Status: Acute Code(s): M54.9 - DORSALGIA, UNSPECIFIED; G89.29 - OTHER CHRONIC PAIN SNOMED Code(s): 577125064 Comment: - At baseline (5) DVT of lower extremity, bilateral Current Visit: Yes Status: Acute Code(s): I82.403 - ACUTE EMBOLISM AND THOMBOS UNSP DEEP VEINS OF LOW EXTRM, BI SNOMED Code(s): 920814324 Comment: - Anticoagulation as above Status and Disposition: needs inpatient level of care of a heparin drip and has been identified to need ANANDA at discharge.
[2018-02-17] MEDS: Warfarin TAB(*) 5 MG PO ONE (16:42)
[2018-02-17] MEDS: diPHENhydraMINE PO* 25 MG PO PRN (17:06)
[2018-02-17] MEDS: oxyCODONE TAB* 5 MG TAB PO PRN (17:07)
[2018-02-17] MEDS: predniSONE TAB* 50 MG PO SCH (20:17)
[2018-02-18 05:09] LABS: INR 2.69 (0.77-1.02)
[2018-02-18 05:11] LABS: EGFR Non-African American 88.3 (>60)
[2018-02-18] MEDS: Acetaminophen TAB* 325 MG PO PRN ×2 (07:02→19:30)
[2018-02-18] MEDS: oxyCODONE TAB* 5 MG TAB PO PRN ×2 (07:02→19:30)
[2018-02-18] MEDS: Nystatin TOP POWDER* 15 GM BTL TOPICAL SCH (08:26)
[2018-02-18] MEDS: Famotidine TAB* 20 MG PO SCH ×2 (08:26→19:31)
[2018-02-18] MEDS: predniSONE TAB* 50 MG PO SCH (08:26)
[2018-02-18] MEDS: FLUoxetine CAP* 20 MG PO SCH (08:26)
[2018-02-18] MEDS ORDERED: predniSONE TAB* 50 MG PO SCH (09:00)
--- NOTE | 2018-02-18 10:55 | PN ---
Subjective Date of Service: 02/18/18 Interval History: Patient developed yesterday a rash on trunk which spread to shoulders and face and is morbilliform and itchy. Patient denies ever having a rash like this before. Patient denies any food allergies. Patient states the benadryl and oxycodone help. Patient denies F/C, N/V, abdominal pain, diarrhea, CP, SOB at rest, or other pain. Past Medical History: Unchanged from Admission Objective Active Medications: Acetaminophen (Tylenol Tab*) 650 mg PO Q6H PRN PRN Reason: FEVER/PAIN Last Admin: 02/18/18 07:02 Dose: 650 mg Albuterol (Ventolin 2.5 Mg/3 Ml Neb.Angelica*) 2.5 mg INH Q4H PRN PRN Reason: SOB/WHEEZING Cyclobenzaprine HCl (Flexeril Tab*) 5 mg PO TID PRN PRN Reason: SPASMS - MUSCLE Last Admin: 02/15/18 20:20 Dose: 5 mg Diphenhydramine HCl (Benadryl Po*) 25 mg PO Q6H PRN PRN Reason: PRURITIS Last Admin: 02/17/18 17:06 Dose: 25 mg Famotidine (Pepcid Tab*) 20 mg PO BID [facility] Last Admin: 02/18/18 08:26 Dose: 20 mg Fluoxetine HCl (Prozac Cap*) 40 mg PO DAILY [facility] Last Admin: 02/18/18 08:26 Dose: 40 mg Heparin Sodium (Porcine) (Heparin Vial(*)) 0 units IV .PER PROTOCOL [facility] Last Admin: 02/12/18 00:09 Dose: 8,000 units Heparin Sodium (Porcine) (Heparin Flush Picc/Ml/Cvc(*)) 1 - 3 ml FLUSH 0600, 1800 [facility]; Protocol Last Admin: 02/18/18 05:53 Dose: 1 ml Oxycodone HCl (Roxycodone Tab*) 5 mg PO Q8H PRN PRN Reason: PAIN - SEVERE Last Admin: 02/18/18 07:02 Dose: 5 mg Pharmacy Profile Note (Coumadin Per Pharmacy*) 1 note FOLLOW UP .PER PHARMACY PROTOC [facility]; Protocol Polyethylene Glycol/Electrolytes (Miralax*) 17 gm PO DAILY PRN PRN Reason: CONSTIPATION Prednisone (Deltasone Tab*) 50 mg PO DAILY [facility] Last Admin: 02/18/18 08:26 Dose: 50 mg Vital Signs - 8 hr 02/18/18 02/18/18 02/18/18 03:44 07:02 07:26 Temperature 97.9 F 99.5 F Pulse Rate 87 93 Respiratory 19 18 20 Rate Blood Pressure 135/71 160/96 (mmHg) O2 Sat by Pulse 99 98 Oximetry 02/18/18 02/18/18 08:00 08:57 Temperature Pulse Rate Respiratory 20 16 Rate Blood Pressure (mmHg) O2 Sat by Pulse Oximetry Oxygen Devices in Use Now: Nasal Cannula Appearance: Patient is a 37yo male who appears stated age and has a rash on his face in NAD. Eyes: No Scleral Icterus, PERRLA Ears/Nose/Mouth/Throat: NL Teeth, Lips, Gums, Clear Oropharnyx, Mucous Membranes Moist Neck: NL Appearance and Movements; NL JVP, Trachea Midline Respiratory: Symmetrical Chest Expansion and Respiratory Effort, Clear to Auscultation Cardiovascular: NL Sounds; No Murmurs; No JVD, RRR, No Edema Abdominal: NL Sounds; No Tenderness; No Distention, No Hepatosplenomegaly Lymphatic: No Cervical Adenopathy Extremities: No Clubbing, Cyanosis, - - 1+ edema B/L Skin: No Nodules or Sclerosis, - - Widespread morbilliform rash on chest and shoulders without discharge or ulceration. Neurological: Alert and Oriented x 3, NL Sensation, NL Muscle Strength and Tone , - - CN II-XII intact. Result Diagrams: 02/17/18 04:20 02/18/18 04:28 Microbiology and Other Data: Microbiology 02/09/18 12:38 Aerobic Blood Culture - Preliminary Blood Venous No Growth Day 3 Anaerobic Blood Culture - Preliminary No Growth Day 3 02/11/18 21:25 Gram Stain - Final Sputum Expectorated 02/09/18 13:08 Aerobic Blood Culture - Preliminary Blood Venous No Growth Day 2 Anaerobic Blood Culture - Preliminary No Growth Day 2 02/09/18 17:35 Legionella Urinary Antigen - Final Urine Negative Legionella Antigen Streptococcus pneumoniae Ag Screen - Final Negative S. pneumo Antigen 02/09/18 12:58 Group A Streptococcus Rapid Screen - Final Throat Specimen received for Rapid Strep A Molecular testing 02/09/18 12:58 Influenza Types A,B Antigen - Final Nasopharyngeal Specimen received for Influenza A/B Molecular testing Assess/Plan/Problems-Billing Assessment: This is a 37 year old man with BMI 85, depression, chronic low back pain who presented to the ED with SOB and was found to have a submassive PE with RV strain who has improving hypoxia and is being initiated on coumadin therapy. - Patient Problems (1) Pulmonary embolism Current Visit: Yes Status: Acute Code(s): I26.99 - OTHER PULMONARY EMBOLISM WITHOUT ACUTE COR PULMONALE SNOMED Code(s): 69089108 Comment: - Unprovoked except for relative immmobility and obesity - Dr. Cooney recommended 5 days of overlap with coumadin and heparin, which would be Saturday 02/17 - INR in therapeutic range. - Will need close monitoring outpatient - Patient has limited mobility and would be unable to get into or out of house in an emergency due to new Dyspnea. Will need Rehab. - Will need repeat echocardiogram in 3-6 months and LE doppler to assess for RV function, CTEPH, and Resolution of LE DVT. (2) Obesities, morbid Current Visit: Yes Status: Acute Code(s): E66.01 - MORBID (SEVERE) OBESITY DUE TO EXCESS CALORIES SNOMED Code(s): 167350322 Comment: - Needs [facility] referral at discharge - Disussed the role of weight in current disease process. (3) Hypoxia Current Visit: Yes Status: Acute Code(s): R09.02 - HYPOXEMIA SNOMED Code(s ): 756224270 Comment: - Likely due to combination of acute PE and Obesity hypoventilation syndrome due to Super-Morbid Obesity - Will require Home Oxygen for activity. (4) Chronic back pain Current Visit: Yes Status: Acute Code(s): M54.9 - DORSALGIA, UNSPECIFIED; G89.29 - OTHER CHRONIC PAIN SNOMED Code(s): 024307666 Comment: - At baseline (5) DVT of lower extremity, bilateral Current Visit: Yes Status: Acute Code(s): I82.403 - ACUTE EMBOLISM AND THOMBOS UNSP DEEP VEINS OF LOW EXTRM, BI SNOMED Code(s): 605073933 Comment: - Anticoagulation as above (6) Rash Current Visit: Yes Status: Acute Code(s): R21 - RASH AND OTHER NONSPECIFIC SKIN ERUPTION SNOMED Code(s): 925740288 Comment: - Widespread itching rash. - Prednisone, Benadryl, Pepcid - Discontinued all medciations not previously exposed to except the above and coumadin - Will assess trajectery of rash. No other validated [facility] option for anticoagulation if continued worsening on Coumadin. Status and Disposition: Inpatient for close monitoring with initiation of coumadin therapy and placement pending at discharge.
[2018-02-18 15:49] LABS: ABS Basophils 0.1 10^3/ul (0-0.2); ABS Eosinophils 0 10^3/ul (0-0.6); ABS Monocytes 0.4 10^3/ul (0-0.8); ABS Neutrophils 8.3 10^3/ul (1.5-7.7); ABS Nucleated RBC 0 10^3/ul; Eosinophil % 0 % (0-6); Hematocrit 38 % (42-52); Hemoglobin 12.4 g/dl (14.0-18.0); Lymphocyte % 10.2 % (25-47); Mean Corpuscular HGB Conc 33 g/dl (31-36); Mean Corpuscular Hemoglobin 28 pg (27-31); Mean Corpuscular Volume 86 fL (80-94); Mean Platelet Volume 9.2 fL (7.4-10.4); Nucleated Red Blood Cells % 0.1; Platelet Count 179 10^3/ul (150-450); Red Blood Count 4.41 10^6/ul (4.00-5.40); Red Cell Distribution Width 14 % (10.5-15); White Blood Count 9.8 10^3/ul (3.5-10.8)
[2018-02-18] MEDS ORDERED: Warfarin TAB(*) 4 MG PO ONE (17:00)
[2018-02-18] MEDS: diPHENhydraMINE PO* 25 MG PO PRN (19:45)
[2018-02-18] MEDS ORDERED: hydrALAZINE TAB* 10 MG PO ONE (20:05)
[2018-02-18] MEDS: Calamine/Pramoxine LOTION 8%/1%* 180 ML TOPICAL PRN (20:56)
[2018-02-19 06:59] LABS: INR 3.76 (0.77-1.02)
[2018-02-19 07:10] LABS: EGFR Non-African American 84.2 (>60)
[2018-02-19] MEDS: FLUoxetine CAP* 20 MG PO SCH (08:34)
[2018-02-19] MEDS: Acetaminophen TAB* 325 MG PO PRN (08:34)
[2018-02-19] MEDS: oxyCODONE TAB* 5 MG TAB PO PRN ×2 (08:34→15:48)
[2018-02-19] MEDS: predniSONE TAB* 50 MG PO SCH (08:35)
[2018-02-19] MEDS: Famotidine TAB* 20 MG PO SCH ×2 (08:35→21:12)
--- NOTE | 2018-02-19 09:42 | PN ---
Progress Note - Progress Note Date of Service: 02/19/18 SOAP: Subjective: []Developed rash yesterday, diffuse, puritic, chest and back. Using lotion and started on Prednisone. Acetaminophen (Tylenol Tab*) 650 mg PO Q6H PRN PRN Reason: FEVER/PAIN Last Admin: 02/19/18 08:34 Dose: 650 mg Albuterol (Ventolin 2.5 Mg/3 Ml Neb.Angelica*) 2.5 mg INH Q4H PRN PRN Reason: SOB/WHEEZING Calamine/Pramoxine (Caladryl Lotion*) 1 applic TOPICAL TID PRN PRN Reason: Allergy Symptoms Last Admin: 02/18/18 20:56 Dose: 1 applic Cyclobenzaprine HCl (Flexeril Tab*) 5 mg PO TID PRN PRN Reason: SPASMS - MUSCLE Last Admin: 02/15/18 20:20 Dose: 5 mg Diphenhydramine HCl (Benadryl Po*) 25 mg PO Q6H PRN PRN Reason: PRURITIS Last Admin: 02/18/18 19:45 Dose: 25 mg Famotidine (Pepcid Tab*) 20 mg PO BID [facility] Last Admin: 02/19/18 08:35 Dose: 20 mg Fluoxetine HCl (Prozac Cap*) 40 mg PO DAILY [facility] Last Admin: 02/19/18 08:34 Dose: 40 mg Heparin Sodium (Porcine) (Heparin Flush Picc/Ml/Cvc(*)) 1 - 3 ml FLUSH 0600, 1800 [facility]; Protocol Last Admin: 02/19/18 05:45 Dose: 1 ml Oxycodone HCl (Roxycodone Tab*) 5 mg PO Q8H PRN PRN Reason: PAIN - SEVERE Last Admin: 02/19/18 08:34 Dose: 5 mg Pharmacy Profile Note (Coumadin Per Pharmacy*) 1 note FOLLOW UP .PER PHARMACY PROTOC [facility]; Protocol Polyethylene Glycol/Electrolytes (Miralax*) 17 gm PO DAILY PRN PRN Reason: CONSTIPATION Prednisone (Deltasone Tab*) 50 mg PO DAILY [facility] Last Admin: 02/19/18 08:35 Dose: 50 mg Objective: [] Vital Signs Temp Pulse Resp BP Pulse Ox 97.6 F 82 18 166/89 94 02/19/18 07:52 02/19/18 07:52 02/19/18 08:34 02/19/18 07:52 02/19/18 07:52 HEENT no oral lesions decreased BS and heart sounds obese, abd NT +2 RANDY BL Diffuse sand paper rash, chest, back and arms. Assessment: []37 year old morbid obesity with idiopathic PE. Currently on Coumadin. Today with increased INR and diffuse rash. Rash may be from Coumadin, famotidine is his other new medication. 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 Plan: []1. Hold Coumadin and will follow rash. 2. Consider holding Famotidine' 3. Once INR < 3.0, Lovenox 150 mg sq bid, will check Xa inhibitor level after 5th dose and adjust accordingly. 4. If discharged will need very close follow up and monitoring of Lovenox. 5. Taper Prednisone as soon as feasible.
--- NOTE | 2018-02-19 10:12 | PN ---
Subjective Date of Service: 02/19/18 Interval History: Sitting in wheelchair. Patient developed a itchy rash on torso over the weekend. Dr Santo documented concern for reaction to Coumadin or famotidine. Patient reports rash has not improved or worsened since onset. Reports calamine lotion helps a little. Reports chronic pain pain which has been exacerbated a little due to hospital bed. Denies chest pain, sob, n/v/d, or leg pain. 12 point ROS completed and all others negative except above mentioned. Past Medical History: Unchanged from Admission Objective Active Medications: Acetaminophen (Tylenol Tab*) 650 mg PO Q6H PRN PRN Reason: FEVER/PAIN Last Admin: 02/19/18 08:34 Dose: 650 mg Albuterol (Ventolin 2.5 Mg/3 Ml Neb.Angelica*) 2.5 mg INH Q4H PRN PRN Reason: SOB/WHEEZING Calamine/Pramoxine (Caladryl Lotion*) 1 applic TOPICAL TID PRN PRN Reason: Allergy Symptoms Last Admin: 02/18/18 20:56 Dose: 1 applic Cyclobenzaprine HCl (Flexeril Tab*) 5 mg PO TID PRN PRN Reason: SPASMS - MUSCLE Last Admin: 02/15/18 20:20 Dose: 5 mg Diphenhydramine HCl (Benadryl Po*) 25 mg PO Q6H PRN PRN Reason: PRURITIS Last Admin: 02/18/18 19:45 Dose: 25 mg Famotidine (Pepcid Tab*) 20 mg PO BID [facility] Last Admin: 02/19/18 08:35 Dose: 20 mg Fluoxetine HCl (Prozac Cap*) 40 mg PO DAILY [facility] Last Admin: 02/19/18 08:34 Dose: 40 mg Heparin Sodium (Porcine) (Heparin Flush Picc/Ml/Cvc(*)) 1 - 3 ml FLUSH 0600, 1800 [facility]; Protocol Last Admin: 02/19/18 05:45 Dose: 1 ml Oxycodone HCl (Roxycodone Tab*) 5 mg PO Q8H PRN PRN Reason: PAIN - SEVERE Last Admin: 02/19/18 08:34 Dose: 5 mg Pharmacy Profile Note (Coumadin Per Pharmacy*) 1 note FOLLOW UP .PER PHARMACY PROTOC [facility]; Protocol Polyethylene Glycol/Electrolytes (Miralax*) 17 gm PO DAILY PRN PRN Reason: CONSTIPATION Prednisone (Deltasone Tab*) 50 mg PO DAILY [facility] Last Admin: 02/19/18 08:35 Dose: 50 mg Vital Signs - 8 hr 02/19/18 02/19/18 02/19/18 04:43 07:52 08:34 Temperature 97.1 F 97.6 F Pulse Rate 88 82 Respiratory 24 24 18 Rate Blood Pressure 155/73 166/89 (mmHg) O2 Sat by Pulse 99 94 Oximetry Oxygen Devices in Use Now: Nasal Cannula Appearance: Well appearing Eyes: No Scleral Icterus Ears/Nose/Mouth/Throat: Mucous Membranes Moist Neck: NL Appearance and Movements; NL JVP Respiratory: Symmetrical Chest Expansion and Respiratory Effort, Clear to Auscultation Cardiovascular: NL Sounds; No Murmurs; No JVD, RRR Abdominal: NL Sounds; No Tenderness; No Distention Extremities: No Clubbing, Cyanosis Skin: - - Red rash to torso Neurological: Alert and Oriented x 3 Nutrition: Taking PO's Result Diagrams: 02/19/18 14:31 02/19/18 14:31 Additional Lab and Data: Laboratory Results - last 24 hr 02/18/18 02/19/18 02/19/18 15:32 06:46 06:46 WBC 9.8 RBC 4.41 Hgb 12.4 L Hct 38 L MCV 86 MCH 28 MCHC 33 RDW 14 Plt Count 179 MPV 9.2 Neut % (Auto) 84.7 H Lymph % (Auto) 10.2 L [place] % (Auto) 4.2 Eos % (Auto) 0 Baso % (Auto) 0.9 Absolute Neuts (auto) 8.3 H Absolute Lymphs (auto) 1.0 Absolute Monos (auto) 0.4 Absolute Eos (auto) 0 Absolute Basos (auto) 0.1 Absolute Nucleated RBC 0 Nucleated RBC % 0.1 INR (Anticoag Therapy) 3.76 H Sodium 138 Potassium TNP Chloride 102 Carbon Dioxide 29 Anion Gap 7 BUN 14 Creatinine 0.99 Est GFR ( Amer) 101.8 Est GFR (Non-Af Amer) 84.2 BUN/Creatinine Ratio 14.1 Glucose 92 Calcium 9.6 Magnesium 2.0 Microbiology and Other Data: Microbiology 02/09/18 12:38 Aerobic Blood Culture - Preliminary Blood Venous No Growth Day 3 Anaerobic Blood Culture - Preliminary No Growth Day 3 02/11/18 21:25 Gram Stain - Final Sputum Expectorated 02/09/18 13:08 Aerobic Blood Culture - Preliminary Blood Venous No Growth Day 2 Anaerobic Blood Culture - Preliminary No Growth Day 2 02/09/18 17:35 Legionella Urinary Antigen - Final Urine Negative Legionella Antigen Streptococcus pneumoniae Ag Screen - Final Negative S. pneumo Antigen 02/09/18 12:58 Group A Streptococcus Rapid Screen - Final Throat Specimen received for Rapid Strep A Molecular testing 02/09/18 12:58 Influenza Types A,B Antigen - Final Nasopharyngeal Specimen received for Influenza A/B Molecular testing Assess/Plan/Problems-Billing Assessment: This is a 37 year old man with BMI 85, depression, chronic low back pain who presented to the ED with SOB and was found to have a submassive PE with RV strain who has improving hypoxia . Was on heparin gtt and transition to coumadin therapy. patient developed rash after coumadin therapy initiated. Plan to transition to lovenox. - Patient Problems (1) Pulmonary embolism Comment: - Unprovoked except for relative immmobility and obesity - Patient had 5 days of overlap with coumadin and heparin, then developed rash on torso, Dr Santo concerned for Coumadin reaction. - Due to INR in supratherapeutic range and rash, coumadin to be held today and once INR is theraputic will start Lovenox per Dr Santo recommendation: Hold Coumadin and will follow rash, Once INR < 3.0, Lovenox 150 mg sq bid, will check Xa inhibitor level after 5th dose and adjust accordingly, if discharged will need very close follow up and monitoring of Lovenox. - Patient has limited mobility and would be unable to get into or out of house in an emergency due to new Dyspnea. Will need Rehab. - Will need repeat echocardiogram in 3-6 months and LE doppler to assess for RV function, CTEPH, and Resolution of LE DVT. (2) DVT of lower extremity, bilateral Comment: - Anticoagulation as above (3) Chronic back pain Comment: - At baseline (4) Hypoxia Comment: - Likely due to combination of acute PE and Obesity hypoventilation syndrome due to Super-Morbid Obesity - Will require Home Oxygen for activity. (5) Rash Comment: - Widespread itching rash, - Concern for medication reaction. - Coumadin to be held due to supratheraputic range and will monitor rash. - Reaction to Famotidine less likely as it was started after rash noticed - Will taper prednisone as soon as possible per Dr Santo recommendation (6) Obesities, morbid Comment: - [facility] referral at discharge - Disussed the role of weight in current disease process. (7) Hypertension Comment: - Hx of htn - BP meds from home held on admission - SBPs have been elevated in 150s to 160s - Atenolol restarted at 50 mg daily (home dose is 100mg). Lisinopril restarted at 10 mg daily (home dose is 20 mg with HCTZ also which will be held). Status and Disposition: Inpatient for close monitoring for liable INR, possible reaction to coumadin, transition to Lovenox. Preferably placement at [facility] for close monitoring lab draws with hematology. Attending: Kwasi Venegas
[2018-02-19] MEDS: Lisinopril TAB* 10 MG PO SCH (12:12)
[2018-02-19] MEDS: Atenolol TAB* 50 MG PO SCH (12:12)
[2018-02-19] MEDS: diPHENhydraMINE PO* 25 MG PO PRN (12:17)
[2018-02-19 15:17] LABS: ABS Basophils 0 10^3/ul (0-0.2); ABS Eosinophils 0.1 10^3/ul (0-0.6); ABS Lymphocytes 0.8 10^3/ul (1.0-4.8); ABS Monocytes 0.2 10^3/ul (0-0.8); ABS Neutrophils 7.9 10^3/ul (1.5-7.7); ABS Nucleated RBC 0 10^3/ul; Eosinophil % 0.8 % (0-6); Hematocrit 43 % (42-52); Hemoglobin 13.4 g/dl (14.0-18.0); Lymphocyte % 8.5 % (25-47); Mean Corpuscular HGB Conc 31 g/dl (31-36); Mean Corpuscular Hemoglobin 29 pg (27-31); Mean Corpuscular Volume 92 fL (80-94); Mean Platelet Volume 9.8 fL (7.4-10.4); Nucleated Red Blood Cells % 0.1; Platelet Count 114 10^3/ul (150-450); Red Cell Distribution Width 16 % (10.5-15); White Blood Count 8.9 10^3/ul (3.5-10.8)
[2018-02-19] MEDS: Cyclobenzaprine TAB* 10 MG PO PRN (15:48)
[2018-02-19] MEDS: Calamine/Pramoxine LOTION 8%/1%* 180 ML TOPICAL PRN (21:17)
[2018-02-20] MEDS: Lisinopril TAB* 10 MG PO SCH (08:12)
[2018-02-20] MEDS: Acetaminophen TAB* 325 MG PO PRN ×3 (08:12→23:32)
[2018-02-20] MEDS: FLUoxetine CAP* 20 MG PO SCH (08:12)
[2018-02-20] MEDS: Atenolol TAB* 50 MG PO SCH (08:12)
[2018-02-20] MEDS: Famotidine TAB* 20 MG PO SCH ×2 (08:12→21:25)
[2018-02-20] MEDS: oxyCODONE TAB* 5 MG TAB PO PRN ×2 (08:12→21:24)
[2018-02-20] MEDS ORDERED: predniSONE TAB* 20 MG PO SCH (09:00)
--- NOTE | 2018-02-20 10:22 | PN ---
Subjective Date of Service: 02/20/18 Interval History: Patient resting in bed with brother at bedside. 2L NC in place Rash appears to have improved. 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 Reports sob with exertion, but reports he feels as if he is improving a little everyday. Specifically, he reports he is less short of breath with exertion and recovers quicker than previously. Denies cp, palpitations, n/v/d. 12 point ROS completed and all other negative except above mentioned. Past Medical History: Unchanged from Admission Objective Active Medications: Acetaminophen (Tylenol Tab*) 650 mg PO Q6H PRN PRN Reason: FEVER/PAIN Last Admin: 02/20/18 08:12 Dose: 650 mg Albuterol (Ventolin 2.5 Mg/3 Ml Neb.Angelica*) 2.5 mg INH Q4H PRN PRN Reason: SOB/WHEEZING Atenolol (Tenormin Tab*) 50 mg PO DAILY [facility] Last Admin: 02/20/18 08:12 Dose: 50 mg Calamine/Pramoxine (Caladryl Lotion*) 1 applic TOPICAL TID PRN PRN Reason: Allergy Symptoms Last Admin: 02/19/18 21:17 Dose: 1 applic Cyclobenzaprine HCl (Flexeril Tab*) 5 mg PO TID PRN PRN Reason: SPASMS - MUSCLE Last Admin: 02/19/18 15:48 Dose: 5 mg Diphenhydramine HCl (Benadryl Po*) 25 mg PO Q6H PRN PRN Reason: PRURITIS Last Admin: 02/19/18 12:17 Dose: 25 mg Famotidine (Pepcid Tab*) 20 mg PO BID [facility] Last Admin: 02/20/18 08:12 Dose: 20 mg Fluoxetine HCl (Prozac Cap*) 40 mg PO DAILY [facility] Last Admin: 02/20/18 08:12 Dose: 40 mg Heparin Sodium (Porcine) (Heparin Flush Picc/Ml/Cvc(*)) 1 - 3 ml FLUSH 0600, 1800 [facility]; Protocol Last Admin: 02/20/18 06:06 Dose: 1 ml Lisinopril (Prinivil Tab*) 10 mg PO DAILY [facility] Last Admin: 02/20/18 08:12 Dose: 10 mg Oxycodone HCl (Roxycodone Tab*) 5 mg PO Q8H PRN PRN Reason: PAIN - SEVERE Last Admin: 02/20/18 08:12 Dose: 5 mg Polyethylene Glycol/Electrolytes (Miralax*) 17 gm PO DAILY PRN PRN Reason: CONSTIPATION Prednisone (Deltasone Tab*) 30 mg PO ONCE ONE Stop: 02/21/18 09:01 Prednisone (Deltasone Tab*) 20 mg PO ONCE ONE Stop: 02/22/18 09:01 Prednisone (Deltasone Tab*) 10 mg PO ONCE ONE Stop: 02/23/18 09:01 Prednisone (Deltasone Tab*) 5 mg PO ONCE ONE Stop: 02/24/18 09:01 Vital Signs - 8 hr 02/20/18 02/20/18 02/20/18 03:58 07:24 08:00 Temperature 98.2 F Pulse Rate 68 71 Respiratory 20 20 16 Rate Blood Pressure 149/86 (mmHg) O2 Sat by Pulse 100 98 Oximetry 02/20/18 08:12 Temperature Pulse Rate Respiratory 16 Rate Blood Pressure (mmHg) O2 Sat by Pulse Oximetry Oxygen Devices in Use Now: Nasal Cannula Appearance: Well appearing Eyes: No Scleral Icterus Ears/Nose/Mouth/Throat: Mucous Membranes Moist Neck: NL Appearance and Movements; NL JVP Respiratory: Symmetrical Chest Expansion and Respiratory Effort, Clear to Auscultation Cardiovascular: NL Sounds; No Murmurs; No JVD, RRR, No Edema Abdominal: NL Sounds; No Tenderness; No Distention Extremities: No Edema Skin: - - Scant red rash noted to lower abd and torso. Improved from yesterday Neurological: Alert and Oriented x 3 Nutrition: Taking PO's Result Diagrams: 02/20/18 12:00 02/19/18 17:27 Additional Lab and Data: Laboratory Results - last 24 hr 02/19/18 02/19/18 02/19/18 14:31 14:31 17:27 WBC 8.9 RBC 4.60 Hgb 13.4 L Hct 43 MCV 92 MCH 29 MCHC 31 RDW 16 H Plt Count 114 L MPV 9.8 Neut % (Auto) 88.2 H Lymph % (Auto) 8.5 L [place] % (Auto) 2.3 Eos % (Auto) 0.8 Baso % (Auto) 0.2 Absolute Neuts (auto) 7.9 H Absolute Lymphs (auto) 0.8 L Absolute Monos (auto) 0.2 Absolute Eos (auto) 0.1 Absolute Basos (auto) 0 Absolute Nucleated RBC 0 Nucleated RBC % 0.1 INR (Anticoag Therapy) Potassium TNP 5.0 02/20/18 02/20/18 12:00 12:00 WBC 9.9 RBC 4.28 Hgb 12.3 L Hct 37 L MCV 87 MCH 29 MCHC 33 RDW 15 Plt Count 172 MPV 9.2 Neut % (Auto) 75.2 Lymph % (Auto) 15.9 L [place] % (Auto) 6.3 Eos % (Auto) 2.0 Baso % (Auto) 0.6 Absolute Neuts (auto) 7.5 Absolute Lymphs (auto) 1.6 Absolute Monos (auto) 0.6 Absolute Eos (auto) 0.2 Absolute Basos (auto) 0.1 Absolute Nucleated RBC 0 Nucleated RBC % 0 INR (Anticoag Therapy) 2.87 H Potassium Microbiology and Other Data: Microbiology 02/13/18 20:21 Sputum Gram Stain - Final 02/13/18 20:21 Sputum Sputum Culture - Final Normal Grace 02/09/18 13:08 Blood Venous Aerobic Blood Culture - Final No Growth Day 5 02/09/18 13:08 Blood Venous Anaerobic Blood Culture - Final No Growth Day 5 02/09/18 12:38 Blood Venous Aerobic Blood Culture - Final No Growth Day 5 02/09/18 12:38 Blood Venous Anaerobic Blood Culture - Final No Growth Day 5 02/11/18 21:25 Sputum Expectorated Gram Stain - Final 02/11/18 21:25 Sputum Expectorated Sputum Culture - Final Normal Grace 02/09/18 17:35 Urine Legionella Urinary Antigen - Final Negative Legionella Antigen 02/09/18 17:35 Urine Streptococcus pneumoniae Ag Screen - Final Negative S. pneumo Antigen 02/09/18 12:58 Throat Group A Streptococcus Rapid Screen - Final Specimen received for Rapid Strep A Molecular testing 02/09/18 12:58 Nasopharyngeal Influenza Types A,B Antigen - Final Specimen received for Influenza A/B Molecular testing Assess/Plan/Problems-Billing Assessment: This is a 37 year old man with BMI 85, depression, chronic low back pain who presented to the ED with SOB and was found to have a submassive PE with RV strain who has improving hypoxia . Was on heparin gtt and transition to coumadin therapy. patient developed rash after coumadin therapy initiated. Plan for Lovenox as anticoagulation - Patient Problems (1) Pulmonary embolism Comment: - Unprovoked except for relative immmobility and obesity - Patient had 5 days of overlap with coumadin and heparin, then developed rash on torso, Dr Santo concerned for Coumadin reaction. - Due to INR in supratherapeutic range and rash, coumadin to be held yesterday and rash has improved. - Plan per Dr Santo recommendation: Hold Coumadin and will follow rash, Once INR < 3.0, Lovenox 150 mg sq bid, will check Xa inhibitor level after 5th (evening dose of 02/22)dose and adjust accordingly, if discharged will need very close follow up and monitoring of Lovenox. - INR <3 today, Lovenox started at 150 mg BID. First dose today 2099. - Patient has limited mobility and would be unable to get into or out of house in an emergency due to new Dyspnea. Will need Rehab. - Will need repeat echocardiogram in 3-6 months and LE doppler to assess for RV function, CTEPH, and Resolution of LE DVT. (2) DVT of lower extremity, bilateral Comment: - Anticoagulation as above (3) Chronic back pain Comment: - At baseline (4) Hypoxia Comment: - Likely due to combination of acute PE and Obesity hypoventilation syndrome due to Super-Morbid Obesity - Will require Home Oxygen for activity. (5) Rash Comment: - Rash improving subjectively and objectively - Concern for medication reaction. - Coumadin to be held due to supratheraputic range and will monitor rash. - Reaction to Famotidine less likely as it was started after rash noticed - Will taper prednisone as soon as possible per Dr Santo recommendation (6) Obesities, morbid Comment: - [facility]eds [facility] discharge - Disussed the role of weight in current disease process. (7) Hypertension Comment: - Hx of htn - BP meds from home held on admission - SBPs have been elevated in 150s to 160s - Restarted BP meds 02/20/18. Atenolol 50 mg daily (home dose is 100mg). Lisinopril restarted at 10 mg daily (home dose is 20 mg with HCTZ also which will be held). - BPs improved today. Status and Disposition: Inpatient for close monitoring for liable INR, possible reaction to coumadin, transition to Lovenox. Preferably placement at [facility] for close monitoring lab draws with hematology. Attending: Ester Spear
[2018-02-20 12:20] LABS: ABS Basophils 0.1 10^3/ul (0-0.2); ABS Eosinophils 0.2 10^3/ul (0-0.6); ABS Lymphocytes 1.6 10^3/ul (1.0-4.8); ABS Monocytes 0.6 10^3/ul (0-0.8); ABS Neutrophils 7.5 10^3/ul (1.5-7.7); ABS Nucleated RBC 0 10^3/ul; Hematocrit 37 % (42-52); Hemoglobin 12.3 g/dl (14.0-18.0); Lymphocyte % 15.9 % (25-47); Mean Corpuscular HGB Conc 33 g/dl (31-36); Mean Corpuscular Hemoglobin 29 pg (27-31); Mean Corpuscular Volume 87 fL (80-94); Mean Platelet Volume 9.2 fL (7.4-10.4); Nucleated Red Blood Cells % 0; Platelet Count 172 10^3/ul (150-450); Red Blood Count 4.28 10^6/ul (4.00-5.40); Red Cell Distribution Width 15 % (10.5-15); White Blood Count 9.9 10^3/ul (3.5-10.8)
[2018-02-20 12:37] LABS: INR 2.87 (0.77-1.02)
[2018-02-20] MEDS: Cyclobenzaprine TAB* 10 MG PO PRN (21:24)
[2018-02-20] MEDS: Enoxaparin(*) 150 MG/ML 1 ML SYRINGE SUBCUT SCH (21:26)
[2018-02-21] MEDS ORDERED: predniSONE TAB* 10 MG PO ONE (09:00)
[2018-02-21] MEDS: FLUoxetine CAP* 20 MG PO SCH (09:49)
[2018-02-21] MEDS: Cyclobenzaprine TAB* 10 MG PO PRN ×2 (09:50→18:00)
[2018-02-21] MEDS: Acetaminophen TAB* 325 MG PO PRN ×2 (09:52→18:00)
[2018-02-21] MEDS: Famotidine TAB* 20 MG PO SCH ×2 (09:52→21:22)
[2018-02-21] MEDS: Atenolol TAB* 50 MG PO SCH (09:52)
[2018-02-21] MEDS: Lisinopril TAB* 10 MG PO SCH (09:52)
[2018-02-21] MEDS: oxyCODONE TAB* 5 MG TAB PO PRN ×2 (09:54→18:01)
[2018-02-21 09:56] LABS: ABS Basophils 0.1 10^3/ul (0-0.2); ABS Eosinophils 0.2 10^3/ul (0-0.6); ABS Lymphocytes 3.2 10^3/ul (1.0-4.8); ABS Monocytes 0.6 10^3/ul (0-0.8); ABS Neutrophils 5.2 10^3/ul (1.5-7.7); ABS Nucleated RBC 0 10^3/ul; Eosinophil % 1.9 % (0-6); Hematocrit 39 % (42-52); Hemoglobin 12.6 g/dl (14.0-18.0); Lymphocyte % 34.7 % (25-47); Mean Corpuscular HGB Conc 32 g/dl (31-36); Mean Corpuscular Hemoglobin 28 pg (27-31); Mean Corpuscular Volume 88 fL (80-94); Mean Platelet Volume 8.8 fL (7.4-10.4); Nucleated Red Blood Cells % 0.2; Platelet Count 174 10^3/ul (150-450); Red Blood Count 4.44 10^6/ul (4.00-5.40); Red Cell Distribution Width 15 % (10.5-15); White Blood Count 9.2 10^3/ul (3.5-10.8)
--- NOTE | 2018-02-21 10:21 | PN ---
Progress Note - Progress Note Date of Service: 02/21/18 SOAP: Subjective: []INR 2.87 yesterday. Lovenox 150 mg BID started @ 2125. No further rash. Feeling OK and breathing is stable. "I feel fine at rest but when I get going...but I'm recovering fast now." Aware of plan for rehab. Appreciative of hem. plan over-view. Medications: Acetaminophen (Tylenol Tab*) 650 mg PO Q6H PRN PRN Reason: FEVER/PAIN Last Admin: 02/21/18 09:52 Dose: 650 mg Albuterol (Ventolin 2.5 Mg/3 Ml Neb.Angelica*) 2.5 mg INH Q4H PRN PRN Reason: SOB/WHEEZING Atenolol (Tenormin Tab*) 50 mg PO DAILY [facility] Last Admin: 02/21/18 09:52 Dose: 50 mg Calamine/Pramoxine (Caladryl Lotion*) 1 applic TOPICAL TID PRN PRN Reason: Allergy Symptoms Last Admin: 02/19/18 21:17 Dose: 1 applic Cyclobenzaprine HCl (Flexeril Tab*) 5 mg PO TID PRN PRN Reason: SPASMS - MUSCLE Last Admin: 02/21/18 09:50 Dose: 5 mg Diphenhydramine HCl (Benadryl Po*) 25 mg PO Q6H PRN PRN Reason: PRURITIS Last Admin: 02/19/18 12:17 Dose: 25 mg Enoxaparin Sodium (Lovenox(*)) 150 mg SUBCUT BID [facility] Last Admin: 02/20/18 21:26 Dose: 150 mg Famotidine (Pepcid Tab*) 20 mg PO BID [facility] Last Admin: 02/21/18 09:52 Dose: 20 mg Fluoxetine HCl (Prozac Cap*) 40 mg PO DAILY [facility] Last Admin: 02/21/18 09:49 Dose: 40 mg Heparin Sodium (Porcine) (Heparin Flush Picc/Ml/Cvc(*)) 1 - 3 ml FLUSH 0600, 1800 [facility]; Protocol Last Admin: 02/21/18 06:05 Dose: 2 ml Lisinopril (Prinivil Tab*) 10 mg PO DAILY [facility] Last Admin: 02/21/18 09:52 Dose: 10 mg Oxycodone HCl (Roxycodone Tab*) 5 mg PO Q8H PRN PRN Reason: PAIN - SEVERE Last Admin: 02/21/18 09:54 Dose: 5 mg Polyethylene Glycol/Electrolytes (Miralax*) 17 gm PO DAILY PRN PRN Reason: CONSTIPATION Prednisone (Deltasone Tab*) 20 mg PO ONCE ONE Stop: 02/22/18 09:01 Prednisone (Deltasone Tab*) 10 mg PO ONCE ONE Stop: 02/23/18 09:01 Prednisone (Deltasone Tab*) 5 mg PO ONCE ONE Stop: 02/24/18 09:01 Objective: [] Vital Signs Temp Pulse Resp BP Pulse Ox 97.3 F 79 20 147/87 100 02/21/18 07:28 02/21/18 07:28 02/21/18 09:54 02/21/18 07:28 02/21/18 07:28 A&Ox3, EOMI, neuro grossly non-focal Morbidly obese HRR, S1S2 LS dim. to bases, no accessory muscle use at rest Laboratory Results - last 24 hr 02/20/18 02/20/18 02/20/18 12:00 12:00 15:30 WBC 9.9 RBC 4.28 Hgb 12.3 L Hct 37 L MCV 87 MCH 29 MCHC 33 RDW 15 Plt Count 172 MPV 9.2 Neut % (Auto) 75.2 Lymph % (Auto) 15.9 L [place] % (Auto) 6.3 Eos % (Auto) 2.0 Baso % (Auto) 0.6 Absolute Neuts (auto) 7.5 Absolute Lymphs (auto) 1.6 Absolute Monos (auto) 0.6 Absolute Eos (auto) 0.2 Absolute Basos (auto) 0.1 Absolute Nucleated RBC 0 Nucleated RBC % 0 INR (Anticoag Therapy) 2.87 H Sodium 136 Potassium TNP Chloride 102 Carbon Dioxide 30 Anion Gap 4 BUN 23 Creatinine 1.12 Est GFR ( Amer) 88.3 Est GFR (Non-Af Amer) 73.0 BUN/Creatinine Ratio 20.5 H Glucose 117 H Calcium 9.3 02/21/18 09:40 WBC 9.2 RBC 4.44 Hgb 12.6 L Hct 39 L MCV 88 MCH 28 MCHC 32 RDW 15 Plt Count 174 MPV 8.8 Neut % (Auto) 55.9 Lymph % (Auto) 34.7 [place] % (Auto) 6.4 Eos % (Auto) 1.9 Baso % (Auto) 1.1 Absolute Neuts (auto) 5.2 Absolute Lymphs (auto) 3.2 Absolute Monos (auto) 0.6 Absolute Eos (auto) 0.2 Absolute Basos (auto) 0.1 Absolute Nucleated RBC 0 Nucleated RBC % 0.2 INR (Anticoag Therapy) Sodium Potassium Chloride Carbon Dioxide Anion Gap BUN Creatinine Est GFR ( Amer) Est GFR (Non-Af Amer) BUN/Creatinine Ratio Glucose Calcium Assessment: []37 yo morbidly obese male with new PE. Unfortunately he developed a rash on coumadin, resolved with discontinuation, and now on Lovenox BID dosing. Plan: []1. Lovenox 150 mg PO BID started last night, check anti-Xa level after 5 doses , Monday approx. 1 am D/C to rehab, will need extensive longterm support for weight loss though he is motivated and willing to start process
[2018-02-21 10:47] LABS: EGFR Non-African American 91.6 (>60)
[2018-02-21] MEDS: Enoxaparin(*) 150 MG/ML 1 ML SYRINGE SUBCUT SCH ×2 (11:17→21:22)
--- NOTE | 2018-02-21 12:10 | PN ---
Subjective Date of Service: 02/21/18 Interval History: Sitting in wheelchair with O2 in place. Reports his is improving a little everyday as he has less shortness of breath with exertion and he is recovering more quickly. But he is not at baseline. Reports rash is improving in appearance and is no longer itching. Denies cp, palpitations, n/v/d, sob at rest. 12 ROS completed and all other negative except above mentioned. Past Medical History: Unchanged from Admission Objective Active Medications: Acetaminophen (Tylenol Tab*) 650 mg PO Q6H PRN PRN Reason: FEVER/PAIN Last Admin: 02/21/18 09:52 Dose: 650 mg Albuterol (Ventolin 2.5 Mg/3 Ml Neb.Agnelica*) 2.5 mg INH Q4H PRN PRN Reason: SOB/WHEEZING Atenolol (Tenormin Tab*) 50 mg PO DAILY [facility] Last Admin: 02/21/18 09:52 Dose: 50 mg Calamine/Pramoxine (Caladryl Lotion*) 1 applic TOPICAL TID PRN PRN Reason: Allergy Symptoms Last Admin: 02/19/18 21:17 Dose: 1 applic Cyclobenzaprine HCl (Flexeril Tab*) 5 mg PO TID PRN PRN Reason: SPASMS - MUSCLE Last Admin: 02/21/18 09:50 Dose: 5 mg Diphenhydramine HCl (Benadryl Po*) 25 mg PO Q6H PRN PRN Reason: PRURITIS Last Admin: 02/19/18 12:17 Dose: 25 mg Enoxaparin Sodium (Lovenox(*)) 150 mg SUBCUT BID [facility] Last Admin: 02/21/18 11:17 Dose: 150 mg Famotidine (Pepcid Tab*) 20 mg PO BID [facility] Last Admin: 02/21/18 09:52 Dose: 20 mg Fluoxetine HCl (Prozac Cap*) 40 mg PO DAILY [facility] Last Admin: 02/21/18 09:49 Dose: 40 mg Heparin Sodium (Porcine) (Heparin Flush Picc/Ml/Cvc(*)) 1 - 3 ml FLUSH 0600, 1800 [facility]; Protocol Last Admin: 02/21/18 06:05 Dose: 2 ml Lisinopril (Prinivil Tab*) 10 mg PO DAILY [facility] Last Admin: 11/21/18 09:52 Dose: 10 mg Oxycodone HCl (Roxycodone Tab*) 5 mg PO Q8H PRN PRN Reason: PAIN - SEVERE Last Admin: 02/21/18 09:54 Dose: 5 mg Polyethylene Glycol/Electrolytes (Miralax*) 17 gm PO DAILY PRN PRN Reason: CONSTIPATION Prednisone (Deltasone Tab*) 20 mg PO ONCE ONE Stop: 02/22/18 09:01 Prednisone (Deltasone Tab*) 10 mg PO ONCE ONE Stop: 02/23/18 09:01 Prednisone (Deltasone Tab*) 5 mg PO ONCE ONE Stop: 02/24/18 09:01 Vital Signs - 8 hr 02/21/18 02/21/18 02/21/18 06:10 07:28 09:50 Temperature 97.3 F Pulse Rate 79 Respiratory 22 20 20 Rate Blood Pressure 147/87 (mmHg) O2 Sat by Pulse 100 Oximetry 02/21/18 09:54 Temperature Pulse Rate Respiratory 20 Rate Blood Pressure (mmHg) O2 Sat by Pulse Oximetry Oxygen Devices in Use Now: Nasal Cannula Appearance: Comfortable, cooperative, NAD Eyes: No Scleral Icterus Ears/Nose/Mouth/Throat: Mucous Membranes Moist Neck: NL Appearance and Movements; NL JVP Respiratory: Symmetrical Chest Expansion and Respiratory Effort, Clear to Auscultation Cardiovascular: NL Sounds; No Murmurs; No JVD, RRR Abdominal: NL Sounds; No Tenderness; No Distention Extremities: No Clubbing, Cyanosis Skin: - - Rash on lower abd and torso improving Neurological: Alert and Oriented x 3 Nutrition: Taking PO's Result Diagrams: 02/21/18 09:40 02/21/18 09:40 Additional Lab and Data: Laboratory Results - last 24 hr 02/20/18 02/20/18 02/20/18 12:00 12:00 15:30 WBC 9.9 RBC 4.28 Hgb 12.3 L Hct 37 L MCV 87 MCH 29 MCHC 33 RDW 15 Plt Count 172 MPV 9.2 Neut % (Auto) 75.2 Lymph % (Auto) 15.9 L [place] % (Auto) 6.3 Eos % (Auto) 2.0 Baso % (Auto) 0.6 Absolute Neuts (auto) 7.5 Absolute Lymphs (auto) 1.6 Absolute Monos (auto) 0.6 Absolute Eos (auto) 0.2 Absolute Basos (auto) 0.1 Absolute Nucleated RBC 0 Nucleated RBC % 0 INR (Anticoag Therapy) 2.87 H Sodium 136 Potassium TNP Chloride 102 Carbon Dioxide 30 Anion Gap 4 BUN 23 Creatinine 1.12 Est GFR ( Amer) 88.3 Est GFR (Non-Af Amer) 73.0 BUN/Creatinine Ratio 20.5 H Glucose 117 H Calcium 9.3 02/21/18 02/21/18 09:40 09:40 WBC 9.2 RBC 4.44 Hgb 12.6 L Hct 39 L MCV 88 MCH 28 MCHC 32 RDW 15 Plt Count 174 MPV 8.8 Neut % (Auto) 55.9 Lymph % (Auto) 34.7 [place] % (Auto) 6.4 Eos % (Auto) 1.9 Baso % (Auto) 1.1 Absolute Neuts (auto) 5.2 Absolute Lymphs (auto) 3.2 Absolute Monos (auto) 0.6 Absolute Eos (auto) 0.2 Absolute Basos (auto) 0.1 Absolute Nucleated RBC 0 Nucleated RBC % 0.2 INR (Anticoag Therapy) Sodium 141 Potassium 3.9 Chloride 103 Carbon Dioxide 31 Anion Gap 7 BUN 19 Creatinine 0.92 Est GFR ( Amer) 110.8 Est GFR (Non-Af Amer) 91.6 BUN/Creatinine Ratio 20.7 H Glucose 83 Calcium 9.1 Microbiology and Other Data: Microbiology 02/13/18 20:21 Sputum Gram Stain - Final 02/13/18 20:21 Sputum Sputum Culture - Final Normal Grace 02/09/18 13:08 Blood Venous Aerobic Blood Culture - Final No Growth Day 5 02/09/18 13:08 Blood Venous Anaerobic Blood Culture - Final No Growth Day 5 02/09/18 12:38 Blood Venous Aerobic Blood Culture - Final No Growth Day 5 02/09/18 12:38 Blood Venous Anaerobic Blood Culture - Final No Growth Day 5 02/11/18 21:25 Sputum Expectorated Gram Stain - Final 02/11/18 21:25 Sputum Expectorated Sputum Culture - Final Normal Grace 02/09/18 17:35 Urine Legionella Urinary Antigen - Final Negative Legionella Antigen 02/09/18 17:35 Urine Streptococcus pneumoniae Ag Screen - Final Negative S. pneumo Antigen 02/09/18 12:58 Throat Group A Streptococcus Rapid Screen - Final Specimen received for Rapid Strep A Molecular testing 02/09/18 12:58 Nasopharyngeal Influenza Types A,B Antigen - Final Specimen received for Influenza A/B Molecular testing Assess/Plan/Problems-Billing Assessment: This is a 37 year old man with BMI 85, depression, chronic low back pain who presented to the ED with SOB and was found to have a submassive PE with RV strain who has improving hypoxia . Was on heparin gtt and transition to coumadin therapy. patient developed rash after coumadin therapy initiated. Coumadin stopped and patient now on Lovenox as anticoagulation - Patient Problems (1) Pulmonary embolism Comment: - Unprovoked except for relative immmobility and obesity - Developed rash on Coumadin. Hematology consulted. Patient now on Lovenox for anticoagulation. - Rash has improved. - Lovenox 150 mg sq bid, will check Xa inhibitor level after 5th (Friday 02/23 0100 to 0300) dose - Will need very close follow up with Hansa/Ivet and monitoring of Lovenox. - Patient has limited mobility and would be unable to get into or out of house in an emergency due to new Dyspnea. Will need Rehab. - Will need repeat echocardiogram in 3-6 months and LE doppler to assess for RV function, CTEPH, and Resolution of LE DVT. (2) DVT of lower extremity, bilateral Comment: - Anticoagulation as above (3) Chronic back pain Comment: - At baseline (4) Hypoxia Comment: - Likely due to combination of acute PE and Obesity hypoventilation syndrome due to Super-Morbid Obesity - Will require Home Oxygen for activity. (5) Rash Comment: - Rash improving - Will taper prednisone as soon as possible per Dr Santo recommendation - Will also taper Famotidine (6) Obesities, morbid Comment: - [facility] at discharge - Disussed the role of weight in current disease process. (7) Hypertension Comment: - Hx of htn - BP meds from home held on admission - SBPs have been elevated in 140s to 150s on lower dosing than home dose therefore BP restarted as ordered prior to admission. Status and Disposition: Inpatient for initiation and close monitoring of Lovenox treatment. Possibly d/ c Monday afternoon to rehab after 0110 to 0300 lab draw of Xa. Attending: Ester Spear
[2018-02-22] MEDS ORDERED: predniSONE TAB* 20 MG PO ONE (09:00)
[2018-02-22] MEDS: Lisinopril TAB* 10 MG PO SCH (09:02)
[2018-02-22] MEDS: Famotidine TAB* 20 MG PO SCH (09:02)
[2018-02-22] MEDS: Atenolol TAB* 50 MG PO SCH (09:02)
[2018-02-22] MEDS: Hydrochlorothiazide TAB* 25 MG PO SCH (09:03)
[2018-02-22] MEDS: FLUoxetine CAP* 20 MG PO SCH (09:03)
[2018-02-22] MEDS: oxyCODONE TAB* 5 MG TAB PO PRN ×2 (09:03→17:59)
[2018-02-22] MEDS: Acetaminophen TAB* 325 MG PO PRN ×2 (09:03→17:59)
[2018-02-22] MEDS: Enoxaparin(*) 150 MG/ML 1 ML SYRINGE SUBCUT SCH ×2 (09:05→20:11)
--- NOTE | 2018-02-22 13:06 | PN ---
Subjective Date of Service: 02/22/18 Interval History: Mr. Coates reports continuing to feel better everyday. He reports less shortness of breath with mobility and that he is able to recover more quickly when he sits down. He denies other complaint including nausea or abdominal pain and is tolerating oral intake well. Objective Active Medications: Acetaminophen (Tylenol Tab*) 650 mg PO Q6H PRN Albuterol (Ventolin 2.5 Mg/3 Ml Neb.Angelica*) 2.5 mg INH Q4H PRN Atenolol (Tenormin Tab*) 100 mg PO DAILY [facility] Calamine/Pramoxine (Caladryl Lotion*) 1 applic TOPICAL TID PRN Cyclobenzaprine HCl (Flexeril Tab*) 5 mg PO TID PRN Diphenhydramine HCl (Benadryl Po*) 25 mg PO Q6H PRN Enoxaparin Sodium (Lovenox(*)) 150 mg SUBCUT BID [facility] Famotidine (Pepcid Tab*) 20 mg PO BID [facility] Fluoxetine HCl (Prozac Cap*) 40 mg PO DAILY [facility] Heparin Sodium (Porcine) (Heparin Flush Picc/Ml/Cvc(*)) 1 - 3 ml FLUSH 0600, 1800 [facility]; Protocol Hydrochlorothiazide (Hydrodiuril Tab*) 25 mg PO DAILY [facility] Lisinopril (Prinivil Tab*) 20 mg PO DAILY [facility] Oxycodone HCl (Roxycodone Tab*) 5 mg PO Q8H PRN Polyethylene Glycol/Electrolytes (Miralax*) 17 gm PO DAILY [facility]N Prednisone (Deltasone Tab*) 10 mg PO ONCE ONE Prednisone (Deltasone Tab*) 5 mg PO ONCE ONE Vital Signs: Temp Pulse Resp BP Pulse Ox 97.3 F 59 18 140/79 100 02/22/18 07:39 02/22/18 07:39 02/22/18 11:06 02/22/18 07:39 02/22/18 07:39 Oxygen Devices in Use Now: Nasal Cannula Appearance: Male sitting up in chair in NAD Eyes: No Scleral Icterus Ears/Nose/Mouth/Throat: Mucous Membranes Moist Neck: Trachea Midline Respiratory: Symmetrical Chest Expansion and Respiratory Effort, Clear to Auscultation Cardiovascular: NL Sounds; No Murmurs; No JVD, No Edema Abdominal: NL Sounds; No Tenderness; No Distention Lymphatic: No Cervical Adenopathy Extremities: No Edema Skin: No Rash or Ulcers Neurological: Alert and Oriented x 3, NL Muscle Strength and Tone Nutrition: Taking PO's Result Diagrams: 02/21/18 09:40 02/21/18 09:40 Additional Lab and Data: . Microbiology and Other Data: . Assess/Plan/Problems-Billing Assessment: Mr. Coates is a 37 year old man with BMI 85, depression, chronic low back pain who presented to the ED with SOB and was found to have a submassive PE with RV strain who has improving hypoxia, initially on heparin gtt and transitioned to coumadin but developed rash requiring switch over to lovenox. - Patient Problems (1) Pulmonary embolism Comment: - Unprovoked except for relative immmobility and obesity - Developed rash on Coumadin. Hematology consulted. Patient now on Lovenox for anticoagulation. - Lovenox 150 mg sq bid, will check Xa inhibitor level after 5th dose (Monday0 to 0300) - Will need very close follow up with Hansa/Ivet and monitoring of Lovenox. - Will need repeat echocardiogram in 3-6 months and LE doppler to assess for RV function, CTEPH, and Resolution of LE DVT. (2) Hypoxia Comment: - Likely due to combination of acute PE and Obesity hypoventilation syndrome due to Super-Morbid Obesity - Will require Home Oxygen for activity. (3) DVT of lower extremity, bilateral Comment: - Anticoagulation as above (4) Hypertension Comment: - BP well controlled. - Continue home atenolol, lisinopril, hctz (5) Rash Comment: - Rash improving - Continue prednisone taper (6) Morbid obesity Comment: - Recommend follow up at [facility] at discharge. (7) DVT prophylaxis Comment: - lovenox (8) Full code status Comment: Status and Disposition: Inpatient for initiation and close monitoring of Lovenox treatment. Possibly d/ c Monday afternoon to rehab after 0100 to 0300 lab draw of Xa.
[2018-02-23] MEDS: Acetaminophen TAB* 325 MG PO PRN ×2 (00:07→09:44)
[2018-02-23] MEDS: Cyclobenzaprine TAB* 10 MG PO PRN (00:07)
--- NOTE | 2018-02-23 08:39 | PN ---
Subjective Date of Service: 02/23/18 Interval History: Mr. Coates denies any acute complaint today and is happy with plan for discharge to [place]. He is optimistic about the future and hopeful to follow up with the [facility] once he has recovered from this acute illness. Past Medical History: Unchanged from Admission Objective Active Medications: Acetaminophen (Tylenol Tab*) 650 mg PO Q6H PRN Albuterol (Ventolin 2.5 Mg/3 Ml Neb.Angelica*) 2.5 mg INH Q4H PRN Atenolol (Tenormin Tab*) 100 mg PO DAILY JESSICA Calamine/Pramoxine (Caladryl Lotion*) 1 applic TOPICAL TID PRN Cyclobenzaprine HCl (Flexeril Tab*) 5 mg PO TID PRN Diphenhydramine HCl (Benadryl Po*) 25 mg PO Q6H PRN Enoxaparin Sodium (Lovenox(*)) 150 mg SUBCUT BID JESSICA Fluoxetine HCl (Prozac Cap*) 40 mg PO DAILY [facility] Heparin Sodium (Porcine) (Heparin Flush Picc/Ml/Cvc(*)) 1 - 3 ml FLUSH 0600, 1800 JESSICA; Protocol Hydrochlorothiazide (Hydrodiuril Tab*) 25 mg PO DAILY JESSICA Lisinopril (Prinivil Tab*) 20 mg PO DAILY JESSICA Oxycodone HCl (Roxycodone Tab*) 5 mg PO Q8H PRN Polyethylene Glycol/Electrolytes (Miralax*) 17 gm PO DAILY PRN Prednisone (Deltasone Tab*) 10 mg PO ONCE ONE Vital Signs: Temp Pulse Resp BP Pulse Ox 97.4 F 66 18 152/83 100 02/23/18 03:25 02/23/18 03:25 02/23/18 07:58 02/23/18 03:25 02/23/18 03:25 Oxygen Devices in Use Now: Nasal Cannula Appearance: Male sitting up in chair in NAD Eyes: No Scleral Icterus Ears/Nose/Mouth/Throat: Mucous Membranes Moist Neck: NL Appearance and Movements; NL JVP Respiratory: Symmetrical Chest Expansion and Respiratory Effort, Clear to Auscultation Cardiovascular: NL Sounds; No Murmurs; No JVD, No Edema Abdominal: NL Sounds; No Tenderness; No Distention Lymphatic: No Cervical Adenopathy Extremities: No Edema Skin: No Rash or Ulcers Neurological: Alert and Oriented x 3, NL Muscle Strength and Tone Nutrition: Taking PO's Result Diagrams: 02/21/18 09:40 02/21/18 09:40 Additional Lab and Data: . Microbiology and Other Data: . Assess/Plan/Problems-Billing Assessment: Mr. Coates is a 37 year old man with BMI 85, depression, chronic low back pain who presented to the ED with SOB and was found to have a submassive PE with RV strain who has improving hypoxia, initially on heparin gtt and transitioned to coumadin but developed rash requiring switch over to lovenox. - Patient Problems (1) Pulmonary embolism Comment: - Unprovoked except for relative immmobility and obesity - Developed rash on Coumadin. Hematology consulted. Patient now on Lovenox for anticoagulation. - Lovenox 150 mg sq bid, will check Xa inhibitor level checked after 5th dose ( pending) - Will need very close follow up with [facility] and monitoring of Lovenox. - Will need repeat echocardiogram in 3-6 months and LE doppler to assess for RV function, CTEPH, and Resolution of LE DVT. (2) Hypoxia Comment: - Likely due to combination of acute PE and Obesity hypoventilation syndrome due to Super-Morbid Obesity - Will require Home Oxygen for activity. (3) DVT of lower extremity, bilateral Comment: - Anticoagulation as above (4) Hypertension Comment: - BP well controlled. - Continue home atenolol, lisinopril, hctz (5) Rash Comment: - Rash resolved (6) Morbid obesity Comment: - Recommend follow up at [facility] at discharge. (7) DVT prophylaxis Comment: - lovenox (8) Full code status Comment: Status and Disposition: Discharge to [place].
[2018-02-23] MEDS ORDERED: predniSONE TAB* 10 MG PO ONE (09:00)
[2018-02-23] MEDS: FLUoxetine CAP* 20 MG PO SCH (09:43)
[2018-02-23] MEDS: Hydrochlorothiazide TAB* 25 MG PO SCH (09:43)
[2018-02-23] MEDS: Lisinopril TAB* 10 MG PO SCH (09:44)
[2018-02-23] MEDS: Atenolol TAB* 50 MG PO SCH (09:44)
[2018-02-23] MEDS: oxyCODONE TAB* 5 MG TAB PO PRN (09:44)
[2018-02-23] MEDS: Enoxaparin(*) 150 MG/ML 1 ML SYRINGE SUBCUT SCH (10:08)
--- NOTE | 2018-02-23 11:35 | DS ---
DISCHARGE SUMMARY: DATE OF ADMISSION: 02/09/18 DATE OF DISCHARGE: 02/23/18 PRIMARY CARE PROVIDER: Yen Stanford NP. ATTENDING PHYSICIAN: Dr. Bertha Henao* (dictation provided by Martha Patterson NP) . PRIMARY DIAGNOSES: 1. Acute hypoxic respiratory failure. 2. Bilateral pulmonary emboli. SECONDARY DIAGNOSES: 1. Morbid obesity. 2. Hypertension. 3. Depression. 4. Chronic back pain. 5. Sleep apnea. OUTPATIENT MEDICATIONS: 1. Lisinopril/hydrochlorothiazide 20/25 one tab p.o. daily. 2. Ibuprofen 600 mg p.o. q.8 hours p.r.n. 3. Fluoxetine 40 mg p.o. daily. 4. Cyclobenzaprine 5-10 mg p.o. t.i.d. p.r.n. 5. Atenolol 100 mg p.o. daily. 6. Oxycodone 5 mg p.o. q.6 hours p.r.n. 7. Lovenox 150 mg subcutaneously b.i.d. HOSPITAL COURSE: Mr. Coates is a 37-year-old male with a past medical history of morbid obesity and a BMI of 85 who presented to the hospital on 02/09/18 with concern for shortness of breath. In the emergency room, the patient had a chest thorax CTA which showed large pulmonary emboli noted involving the left main pulmonary artery extending into the lingular and left lower lobe pulmonary artery with a clot noted in the right middle lobe segmental artery of the right lower lobe pulmonary artery. Patient shortly thereafter, had a transthoracic echocardiogram which showed normal ventricular systolic function with moderate to severely dilated right ventricle and moderate to severely reduced right ventricular systolic function with septal flattening of the intraventricular septum with moderate to severe pulmonary hypertension. Mr. Coates was admitted to the Intensive Care Unit. He had an arterial line placed by the sweeping compound blender. He remained hemodynamically stable with stable oxygen requirements and treatment was begun with heparin infusion. TPA was considered, but the patient remained hemodynamically stable. The patient was seen in consultation by the sheet metal production worker, Dr. Cooney. He recommended that DOAC should be avoided and that the patient should be transitioned from a heparin drip over to Coumadin with an INR goal of 2-3. The patient was switched over to Coumadin, but unfortunately developed a severe rash across his torso. This was discussed with the oncology team and it was recommended at that time that the patient be switched over to Lovenox. The patient has remained on Lovenox for several days, his rash has resolved. Recommendations from hematology was that we check factor Xa inhibitor level and this was accomplished last evening. The results of that are pending. Mr. Coates continues to do well. He continues to be short of breath with mobility in part due to his obesity, but also due to his pulmonary emboli. He will need rehabilitation and has been accepted at [facility] in [place] until he is able to return to a baseline independent living. He has been recommended to follow up with Dr. Santo's office next week, but to also consider followup with [facility] regarding ongoing management of his weight loss. The patient is optimistic in this regard. DISPOSITION: To [place]. ACTIVITY: As tolerated. FOLLOWUP PLANS: 1. Please follow up with Dr. Santo next week regarding the results of factor Xa inhibitor level and ongoing treatment and management of Lovenox. 2. Please follow up with nurse practitioner Yen Stanford per routine once you are discharged from [place]. 3. Please follow up with [facility] on discharge from [place] as well. 4. The patient should have a repeat echocardiogram in 3-6 months to evaluate the RV function as well as lower extremity Doppler to evaluate for resolution of the lower extremity DVTs. TIME SPENT: Approximately 70 minutes were spent in the discharge of this patient, more than half that time was spent with the patient at the bedside reviewing the events leading up to this hospitalization, performing the physical examination, and reviewing the plan of care. MARTHA PATTERSON NP [id number]/[facility] #: [id number]
[2018-02-23 11:49] VITALS: BP 134/58
[2018-02-24] MEDS ORDERED: predniSONE TAB* 5 MG PO ONE (09:00)
== END 2018-02-23 12:10 | DRG 951 ==
LOC: ED 12:11 → ICU 15:25 → MEDTELE 02-11 13:39
PROVIDERS: ADMIT Internal Medicine Critical Care Medicine; ATTEND Student in an Organized Health Care Education/Training Program
PROC: 03HY32Z Insertion of Monitoring Device into Upper Artery, Percutaneous Approach (ICD-10-PCS; principal; 2018-02-09)
PROC: 02HV33Z Insertion of Infusion Device into Superior Vena Cava, Percutaneous Approach (ICD-10-PCS; 2018-02-09)
DX: I26.99 Other pulmonary embolism without acute cor pulmonale (principal); J96.01 Acute respiratory failure with hypoxia; I82.443 Acute embolism and thrombosis of tibial vein, bilateral; I82.432 Acute embolism and thrombosis of left popliteal vein; E66.2 Morbid (severe) obesity with alveolar hypoventilation; Z68.45 Body mass index [BMI] 70 or greater, adult; I10 Essential (primary) hypertension; G89.29 Other chronic pain; F32.9 Major depressive disorder, single episode, unspecified; M54.5 Low back pain; R79.1 Abnormal coagulation profile; L27.0 Generalized skin eruption due to drugs and medicaments taken internally; T45.515A Adverse effect of anticoagulants, initial encounter; Y92.239 Unspecified place in hospital as the place of occurrence of the external cause; Z72.89 Other problems related to lifestyle; Z83.3 Family history of diabetes mellitus; Z82.5 Family history of asthma and other chronic lower respiratory diseases; Z56.0 Unemployment, unspecified; Z87.891 Personal history of nicotine dependence; Z23 Encounter for immunization
CPT/HCPCS: 36415; 71275; 80048; 80053; 80061; 81003; 82803; 83036; 83605; 83735; 83880; 84443; 84484; 85025; 85027; 85520; 85610; 85730; 86140; 86738; 87040; 87070; 87077; 87205; 87651; 87899; 90686; 93005; 93306; 93970; 99232; 99284; A9270-GY; C8929; G8987-GO-CL; G8988-GO-CJ; J0456; J0696; J1644; J1650; J2405; J7512; Q9967

== ENCOUNTER 2020-01-18 07:34 | Inpatient (IN) ==
[2020-01-18] MEDS ORDERED: Naloxone 0.4 mg VIAL 0.4 mg/ml 1 ml VIAL IV PUSH ONE (08:07)
[2020-01-18 08:12] LABS: ABS Basophils 0.1 10^3/ul (0-0.2); ABS Eosinophils 0.1 10^3/ul (0-0.6); ABS Lymphocytes 1.8 10^3/ul (1.0-4.8); ABS Monocytes 0.5 10^3/ul (0-0.8); ABS Neutrophils 18.3 10^3/ul (1.5-7.7); Eosinophil % 0.6 %; Hematocrit 37 % (42-52); Hemoglobin 11.9 g/dL (14.0-18.0); Lymphocyte % 8.8 %; Mean Corpuscular HGB Conc 32 g/dL (31-36); Mean Corpuscular Hemoglobin 29 pg (27-31); Mean Corpuscular Volume 89 fL (80-94); Mean Platelet Volume 9.5 fL (7.4-10.4); Nucleated Red Blood Cells % 0.1; Platelet Count 272 10^3/uL (150-450); Red Blood Count 4.15 10^6 /uL (4.18-5.48); Red Cell Distribution Width 15 % (10-15); White Blood Count 20.8 10^3/uL (3.5-10.8)
[2020-01-18 08:21] LABS: INR 1.11 (0.82-1.09)
[2020-01-18 08:34] LABS: Albumin 4.7 g/dL (3.2-5.2); Anion Gap 13 mmol/L (2-11); CO2 Carbon Dioxide 28 mmol/L (22-32); Calcium 10.4 mg/dL (8.6-10.3); Chloride 97 mmol/L (101-111); Magnesium 1.9 mg/dL (1.9-2.7); Sodium 138 mmol/L (135-145)
[2020-01-18 08:40] LABS: ALT 24 U/L (7-52); AST 21 U/L (13-39); Albumin/Globulin Ratio 1.5 (1-3); Alcohol, S < 10 mg/dL (<10); Alkaline Phosphatase 71 U/L (34-104); BUN/Creatinine Ratio 21.7 (8-20); Blood Urea Nitrogen 46 mg/dL (6-24); EGFR African American 41.9 (>60); EGFR Non-African American 34.6 (>60); Globulin 3.1 g/dL (2-4); Glucose 236 mg/dL (70-100); Total Protein 7.8 g/dL (6.4-8.9)
[2020-01-18] MEDS ORDERED: cefTRIAXone 1 gm/50 mL NS BAG 1 GM/50 ML BAG IV ONE (08:46)
[2020-01-18] MEDS ORDERED: Azithromycin IV 500 MG in NS 0.9% 250 ml 250 ML IVPB ONE (08:46)
[2020-01-18] MEDS ORDERED: Azithromycin 500 mg/250 ml NS 500 MG/250 ML BAG ONE (08:57)
[2020-01-18] MEDS ORDERED: NS 0.9% IV ONE (09:00)
[2020-01-18 09:42] LABS: Urine Appearance Cloudy; Urine Bilirubin Negative (Negative); Urine Blood Negative (Negative); Urine Color Yellow; Urine Glucose Negative (Negative); Urine Ketones Negative (Negative); Urine Nitrite Negative (Negative); Urine Protein 1+(30 mg/dL) (Negative); Urine Specific Gravity 1.015 (1.010-1.030); Urine Urobilinogen Negative (Negative)
[2020-01-18 09:49] LABS: Urine Bacteria Absent (Absent); Urine Red Blood Cell Trace(0-2/hpf) (Absent); Urine Squamous Epithelial Cell Present (Absent); Urine White Blood Cell Absent (Absent)
[2020-01-18 09:55] LABS: Urine Benzodiazepine Screen None Detected (None Detect); Urine Cannabinoids Screen None Detected (None Detect); Urine Opiates Screen Presumptive Positive (None Detect)
[2020-01-18] MEDS ORDERED: Azithromycin 500 mg/250 mL NS IVPB ONE (10:00)
[2020-01-18] MEDS ORDERED: Zosyn per Pharmacy NOTE FOLLOW UP SCH (11:00)
[2020-01-18] MEDS: Piperacillin/Tazobac ADVAN 3.375 GM in NS 0.9% 100 ml BAG 100 ML IV ONE (11:52)
[2020-01-18] MEDS: ZOSYN 3.375 GM Q8H per EXTENDED INFUSION IV SCH (16:59)
[2020-01-19] MEDS: Piperacillin/Tazobac ADVAN 3.375 GM in NS 0.9% 100 ml BAG 100 ML IV ONE (01:11)
[2020-01-19] MEDS: ZOSYN 3.375 GM Q8H per EXTENDED INFUSION IV SCH ×2 (01:12→08:29)
[2020-01-19 05:58] LABS: ABS Basophils 0.1 10^3/ul (0-0.2); ABS Lymphocytes 2.1 10^3/ul (1.0-4.8); ABS Monocytes 0.5 10^3/ul (0-0.8); Eosinophil % 0.3 %; Hematocrit 33 % (42-52); Hemoglobin 10.6 g/dL (14.0-18.0); Lymphocyte % 21.8 %; Mean Corpuscular HGB Conc 32 g/dL (31-36); Mean Corpuscular Hemoglobin 28 pg (27-31); Mean Corpuscular Volume 87 fL (80-94); Mean Platelet Volume 9.4 fL (7.4-10.4); Platelet Count 190 10^3/uL (150-450); Red Blood Count 3.75 10^6 /uL (4.18-5.48); Red Cell Distribution Width 14 % (10-15); White Blood Count 9.8 10^3/uL (3.5-10.8)
[2020-01-19 06:13] LABS: Calcium 9.7 mg/dL (8.6-10.3); EGFR African American 108.3 (>60); EGFR Non-African American 89.5 (>60); Potassium 4.2 mmol/L (3.5-5.0)
[2020-01-19] MEDS: Nystatin TOP POWDER 15 GM BTL TOPICAL SCH ×2 (17:36→21:23)
[2020-01-20 08:00] LABS: ABS Eosinophils 0.1 10^3/ul (0-0.6); ABS Monocytes 0.4 10^3/ul (0-0.8); ABS Neutrophils 4.6 10^3/ul (1.5-7.7); Hematocrit 32 % (42-52); Hemoglobin 10.6 g/dL (14.0-18.0); Mean Corpuscular HGB Conc 34 g/dL (31-36); Mean Corpuscular Hemoglobin 29 pg (27-31); Mean Corpuscular Volume 88 fL (80-94); Mean Platelet Volume 9.5 fL (7.4-10.4); Platelet Count 162 10^3/uL (150-450); Red Cell Distribution Width 14 % (10-15); White Blood Count 7.2 10^3/uL (3.5-10.8)
[2020-01-20 08:21] LABS: BUN/Creatinine Ratio 20.9 (8-20); Calcium 9.4 mg/dL (8.6-10.3); EGFR African American 118.6 (>60)
[2020-01-20] MEDS ORDERED: Influenza VAC *QUAD* 2020-21* 0.5 ML SYRINGE IM ONE (09:00)
[2020-01-20] MEDS: Nystatin TOP POWDER 15 GM BTL TOPICAL SCH ×3 (10:36→20:16)
[2020-01-21 07:49] LABS: BUN/Creatinine Ratio 17.6 (8-20); Calcium 8.7 mg/dL (8.6-10.3); EGFR African American 120.2 (>60); EGFR Non-African American 99.3 (>60); Potassium 4.4 mmol/L (3.5-5.0)
[2020-01-21 07:50] LABS: Hematocrit 32 % (42-52); Hemoglobin 10.5 g/dL (14.0-18.0); Mean Corpuscular HGB Conc 33 g/dL (31-36); Mean Corpuscular Hemoglobin 29 pg (27-31); Mean Corpuscular Volume 88 fL (80-94); Mean Platelet Volume 10.1 fL (7.4-10.4); Platelet Count 180 10^3/uL (150-450); Red Blood Count 3.61 10^6 /uL (4.18-5.48); Red Cell Distribution Width 15 % (10-15); White Blood Count 7.2 10^3/uL (3.5-10.8)
[2020-01-21] MEDS: Nystatin TOP POWDER 15 GM BTL TOPICAL SCH ×3 (07:51→22:11)
[2020-01-21 08:52] LABS: ABS Basophils 0.1 10^3/ul (0-0.2); ABS Eosinophils 0.3 10^3/ul (0-0.6)
[2020-01-22 08:18] LABS: ABS Eosinophils 0.1 10^3/ul (0-0.6); ABS Lymphocytes 2.2 10^3/ul (1.0-4.8); ABS Monocytes 0.4 10^3/ul (0-0.8); ABS Neutrophils 3.9 10^3/ul (1.5-7.7); Eosinophil % 1.7 %; Hematocrit 31 % (42-52); Hemoglobin 10.5 g/dL (14.0-18.0); Lymphocyte % 33.1 %; Mean Corpuscular HGB Conc 34 g/dL (31-36); Mean Corpuscular Hemoglobin 29 pg (27-31); Mean Corpuscular Volume 87 fL (80-94); Mean Platelet Volume 9.2 fL (7.4-10.4); Platelet Count 157 10^3/uL (150-450); Red Blood Count 3.57 10^6 /uL (4.18-5.48); Red Cell Distribution Width 14 % (10-15); White Blood Count 6.6 10^3/uL (3.5-10.8)
[2020-01-22 08:30] LABS: BUN/Creatinine Ratio 13.7 (8-20); Calcium 8.6 mg/dL (8.6-10.3); EGFR African American 105.7 (>60); EGFR Non-African American 87.4 (>60)
[2020-01-22] MEDS: Nystatin TOP POWDER 15 GM BTL TOPICAL SCH ×2 (08:54→12:21)
[2020-01-22 11:55] VITALS: BP 118/55
== END 2020-01-22 14:10 | disposition swing bed (61) | DRG 816 ==
LOC: ED 07:34 → ICU 11:03 → MEDTELE 01-19 18:26
PROVIDERS: ADMIT Internal Medicine; ATTEND Student in an Organized Health Care Education/Training Program

== ENCOUNTER 2020-01-22 14:11 | Inpatient (IN) ==
[2020-01-30 08:25] LABS: Hematocrit 33 % (42-52); Mean Platelet Volume 9.7 fL (7.4-10.4); Platelet Count 185 10^3/uL (150-450)
[2020-01-30 08:42] LABS: EGFR African American 111.1 (>60); EGFR Non-African American 91.8 (>60)
[2020-02-07 08:26] VITALS: BP 116/62
== END 2020-02-07 08:59 | DRG 133 ==
LOC: MEDTELE 14:11
PROVIDERS: ADMIT Student in an Organized Health Care Education/Training Program; ATTEND Student in an Organized Health Care Education/Training Program